=== PATIENT | female | born 1950 | race Caucasian/White ===

== ENCOUNTER 2021-10-16 20:32 | Inpatient (IN) | payer OTHER, MEDICARE ==
[2021-10-16 22:21] LABS: Absolute Lymphocytes (CBC) 1.1 K/uL (0.7-4.9); Basophils % 0.1 % (0-1.3); Hematocrit 39.8 % (36.0-45.0); Lymphocytes % 5.4 % (15.3-44.8); MPV 7.6 fL (7.6-11.3); RBC Red Blood Cell Count 4.34 M/uL (3.86-4.86)
[2021-10-16] MEDS ORDERED: ONDANSETRON 4 MG/2 ML VIAL ONE (22:28)
[2021-10-16] MEDS ORDERED: ALBUTEROL 2.5 MG/3 ML NEB SOL ONE (22:29)
[2021-10-16] MEDS ORDERED: FAMOTIDINE 20 MG/2 ML VIAL IV ONE (22:29)
[2021-10-16] MEDS ORDERED: IPRATROPIUM BROM 0.5MG/2.5ML ONE (22:29)
[2021-10-16] MEDS ORDERED: NA CHLORIDE 0.9% 2,000 ML ONE (22:29)
[2021-10-16 22:33] LABS: Protime INR 1.15
[2021-10-16 22:44] LABS: ALT/SGPT 37 U/L (12-78); AST/SGOT 26 U/L (15-37); Albumin 3.6 g/dL (3.4-5.0); Alkaline Phosphatase 101 U/L (45-117); Amylase 56 U/L (25-115); BUN Blood Urea Nitrogen 33 mg/dL (7-18); Bicarbonate 21 mmol/L (21-32); Bilirubin Direct 0.1 mg/dL (0-0.2); Bilirubin Total 0.4 mg/dL (0.2-1.0); CKMB Creatine Kinase MB 1.8 ng/mL (1.0-3.6); Creatine Phosphokinase 148 U/L (26-192); Glucose Level 130 mg/dL (74-106); Lipase 223 U/L (73-393); Potassium 3.8 mmol/L (3.5-5.1); Protein, Total 8.2 g/dL (6.4-8.2); Sodium Level 141 mmol/L (136-145); Troponin (Emerg Dept Use Only) < 0.02 ng/mL (0.0-0.045)
[2021-10-17] MEDS ORDERED: CEFTRIAXONE 1000 MG/VIAL ONE (00:18)
[2021-10-17] MEDS ORDERED: NA CHLORIDE 0.9% 0 ML ONE (00:19)
[2021-10-17] MEDS ORDERED: AZITHROMYCIN 500 MG INJ IVPB ONE (00:19)
--- NOTE | 2021-10-17 00:47 | EDPHYS ---
Physician Documentation [facility] Name: Chele Galvez Age: 71 yrs Sex: Female : 1950 Arrival Date: 10/16/2021 Time: 20:43 Bed 16 Private MD: ED Physician Fredy Delgadillo HPI: 10/16 22:06 This 71 yrs old Female presents to ER via Ambulatory with complaints of PNUEMONIA. mh7 22:06 The patient or guardian reports cough, that is intermittent, described as moderate, mh7 difficulty breathing, flu symptoms, low-grade fever, myalgias, Chills, nausea, vomiting. 22:06 Onset: The symptoms/episode began/occurred 4 day(s) ago, and became worse today. mh7 Severity of symptoms: At their worst the symptoms were moderate, earlier today, in the emergency department the symptoms are unchanged. Modifying factors: The symptoms are alleviated by nothing, the symptoms are aggravated by nothing. Associated signs and symptoms: Pertinent positives: fever, nausea, vomiting, Pertinent negatives: chest pain, diarrhea, ear ache, rhinorrhea, sore throat. The patient has been recently seen by a physician: Outside facility. Patient states that she started having productive cough, shortness of breath, fever, chills 4 days ago. She was seen at a freestanding ED yesterday and was diagnosed with pneumonia and started on Augmentin, azithromycin, and prednisone. She states that she started having nausea and vomiting today and is unable to keep medication down.. Historical: - Allergies: 21:49 No Known Allergies; bb - Immunization history:: Adult Immunizations up to date, Client reports receiving the 2nd dose of the Covid vaccine, pfizer 3 vaccines. - Social history:: Smoking status: Patient denies any tobacco usage or history of. ROS: 22:06 Eyes: Negative for injury, pain, redness, and discharge, ENT: Negative for injury, mh7 pain, and discharge, Neck: Negative for injury, pain, and swelling, Cardiovascular: Negative for chest pain, palpitations, and edema. 22:06 Back: Negative for injury and pain, : Negative for injury, bleeding, discharge, and swelling, MS/Extremity: Negative for injury and deformity, Skin: Negative for injury, rash, and discoloration, Neuro: Negative for headache, weakness, numbness, tingling, and seizure, Psych: Negative for depression, anxiety, suicide ideation, homicidal ideation, and hallucinations, Allergy/Immunology: Negative for hives, rash, and allergies, Endocrine: Negative for neck swelling, polydipsia, polyuria, polyphagia, and marked weight changes, Hematologic/Lymphatic: Negative for swollen nodes, abnormal bleeding, and unusual bruising. 22:06 Abdomen/GI: Negative for abdominal pain, diarrhea, constipation, abdominal cramps, abdominal distension, anorexia, dysphagia, hematemesis, black/tarry stool, rectal pain, rectal bleeding, bowel incontinence, flatulence. Exam: 22:06 Head/Face: Normocephalic, atraumatic. Eyes: Pupils equal round and reactive to light, mh7 extra-ocular motions intact. Lids and lashes normal. Conjunctiva and sclera are non-icteric and not injected. Cornea within normal limits. Periorbital areas with no swelling, redness, or edema. Neck: Trachea midline, no thyromegaly or masses palpated, and no cervical lymphadenopathy. Supple, full range of motion without nuchal rigidity, or vertebral point tenderness. No Meningismus. Chest/axilla: Normal chest wall appearance and motion. Nontender with no deformity. No lesions are appreciated. Cardiovascular: Regular rate and rhythm with a normal S1 and S2. No gallops, murmurs, or rubs. Normal PMI, no JVD. No pulse deficits. 22:06 Abdomen/GI: Soft, non-tender, with normal bowel sounds. No distension or tympany. No guarding or rebound. No evidence of tenderness throughout. Back: No spinal tenderness. No costovertebral tenderness. Full range of motion. Skin: Warm, dry with normal turgor. Normal color with no rashes, no lesions, and no evidence of cellulitis. MS/ Extremity: Pulses equal, no cyanosis. Neurovascular intact. Full, normal range of motion. Neuro: Awake and alert, GCS 15, oriented to person, place, time, and situation. Cranial nerves II-XII grossly intact. Motor strength 5/5 in all extremities. Sensory grossly intact. Cerebellar exam normal. Normal gait. Psych: Awake, alert, with orientation to person, place and time. Behavior, mood, and affect are within normal limits. 22:06 Constitutional: The patient appears in no acute distress, alert, awake, uncomfortable. 22:06 Respiratory: the patient does not display signs of respiratory distress, Respirations: prolonged exhalation, that is mild, Breath sounds: rhonchi, that are moderate, are scattered, Respiratory rate: 20 Vital Signs: 21:45 BP 138 / 79; Pulse 93; Resp 20 S; Temp 98(O); Pulse Ox 99% on R/A; Weight 56.25 kg (R); bb Height 5 ft. 9 in. (175.26 cm); Pain 08/09; 10/17 03:49 BP 115 / 59; Pulse 85; Resp 20; Temp 98.2(O); Pulse Ox 99% on R/A; lp1 10/16 21:45 Body Mass Index 18.31 (56.25 kg, 175.26 cm) bb MDM: 00:45 Differential Diagnosis: Bronchitis Influenza Upper Respiratory Infection Sinusitis [facility] Allergic Rhinitis Asthma Exacerbation Viral Syndrome Pneumonia. Data reviewed: vital signs, nurses notes, lab test result(s), cardiac enzymes, CBC, electrolytes, EKG, radiologic studies, CT scan, plain films. Data interpreted: Pulse oximetry: on room air is 99 %. Interpretation: normal. Counseling: I had a detailed discussion with the patient and/or guardian regarding: the historical points, exam findings, and any diagnostic results supporting the discharge/admit diagnosis, the presence of at least one elevated blood pressure reading (>120/80) during this emergency department visit, lab results, radiology results, the need for further work-up and treatment in the hospital. Response to treatment: the patient's symptoms have mildly improved after treatment. 00:47 Patient medically screened. [facility] 10/16 22:03 Order name: Amylase, Serum [facility] 10/16 22:03 Order name: Basic Metabolic Panel [facility] 10/16 22:03 Order name: Blood Culture Adult (2) [facility] 10/16 22:03 Order name: CBC with Diff [facility] 10/16 22:03 Order name: CPK; Complete Time: 23:03 [facility] 10/16 22:03 Order name: Ckmb; Complete Time: 23:03 [facility] 10/16 22:03 Order name: LFT's; Complete Time: 23:03 [facility] 10/16 22:03 Order name: Lactate; Complete Time: 23:03 [facility] 10/16 22:03 Order name: Lipase; Complete Time: 23:03 [facility] 10/16 22:03 Order name: Procalcitonin; Complete Time: 23:03 [facility] 10/16 22:03 Order name: Protime (+inr); Complete Time: 23:03 [facility] 10/16 22:03 Order name: Ptt, Activated; Complete Time: 23:03 [facility] 10/16 22:03 Order name: Sputum Culture [facility] 10/16 22:03 Order name: Troponin (emerg Dept Use Only); Complete Time: 23:03 [facility] 10/16 22:03 Order name: Urine Culture [facility] 10/16 22:03 Order name: Urine Microscopic Only [facility] 10/16 22:03 Order name: Chest Single View XRAY [facility] 10/16 22:04 Order name: Amylase; Complete Time: 23:03 [facility] 10/16 22:04 Order name: Basic Metabolic Panel; Complete Time: 23:03 [facility] 10/16 22:04 Order name: Blood Culture [facility] 10/16 22:04 Order name: CBC with Automated Diff; Complete Time: 23:03 [facility] 10/16 23:07 Order name: CT Chest For PE Angio [facility] 10/17 01:10 Order name: COVID-19 SARS RT PCR (Document "Date of Onset" if Symptomatic) [facility] 10/17 01:10 Order name: SARS-COV-2 RT PCR [facility] 10/17 01:24 Order name: Urine Dipstick-Ancillary [facility] 10/16 22:03 Order name: Accucheck; Complete Time: 22:12 [facility] 10/16 22:03 Order name: Cardiac monitoring; Complete Time: 22:12 [facility] 10/16 22:03 Order name: EKG - Nurse/Tech; Complete Time: 22:50 [facility] 10/16 22:03 Order name: IV Saline Lock - Large Bore; Complete Time: 22:12 [facility] 10/16 22:03 Order name: Labs collected and sent; Complete Time: 22:12 [facility] 10/16 22:03 Order name: O2 Per Protocol; Complete Time: 22:12 [facility] 10/16 22:03 Order name: O2 Sat Monitoring; Complete Time: 22:12 [facility] 10/16 22:03 Order name: Urine Dipstick-Ancillary (obtain specimen); Complete Time: 01:26 7 Administered Medications: 10/16 22:35 Drug: Pepcid (famotidine) 20 mg Route: IVP; Site: left antecubital; [facility] 22:36 Drug: NS 0.9% (30 ml/kg) 30 ml/kg Route: IV; Rate: bolus; Site: left antecubital; [facility] 22:36 Drug: Zofran (Ondansetron) 4 mg Route: IVP; Site: left antecubital; [facility] 22:36 Drug: Albuterol 2.5 mg Route: Inhalation; [facility] 22:36 Drug: AtroVENT (ipratropium) Aerosol 0.5 mg Route: Inhalation; [facility] 10/17 00:29 Drug: Rocephin (cefTRIAXone) 1 grams Route: IV; Rate: per protocol; Site: left [facility]; 00:29 Drug: AZITHromycin 500 mg Route: IVPB; Infused Over: 1 hrs; Site: left antecubital; [facility] 03:15 Follow up: IV Status: Completed infusion; IV Intake: 250ml lp1 00:31 Drug: NS 0.9% (30 ml/kg) 30 ml/kg Route: IV; Rate: bolus; Site: left antecubital; [facility] 03:51 Follow up: IV Status: Completed infusion; IV Intake: 1687ml lp1 Disposition Summary: 10/17/21 00:47 Hospitalization Ordered Hospitalization Status: Inpatient Admission [facility] Provider: Brett Menjivar Location: Telemetry/MedSurg (Inpatient) [facility] Condition: Stable [facility] Problem: new [facility] Symptoms: have improved [facility] Bed/Room Type: Standard [facility] Room Assignment: [facility](10/17/21 03:52) Diagnosis - Multilobar Pneumonia [facility] - Dyspnea [facility] - Nausea with vomiting, unspecified [facility] Forms: - Medication Reconciliation Form [facility] - SBAR form [facility] Signatures: Dispatcher [employer] EDMS Angi Sarkar RN RN Sri Brandon RN RN bb Holmes, Maurice, MD MD [facility] Fabiola Levin RN RN [facility] Toya Carrillo RN 1 Corrections: (The following items were deleted from the chart) 03:52 00:47 [facility]
--- NOTE | 2021-10-17 00:47 | ER ---
Nurse's Notes [facility] Name: Chele Galvez Age: 71 yrs Sex: Female : 1950 Arrival Date: 10/16/2021 Time: 20:43 Bed 16 Private MD: Diagnosis: Multilobar Pneumonia;Dyspnea;Nausea with vomiting, unspecified Presentation: 10/16 21:45 Chief complaint: Patient states: she was seen at [place] yesterday and diagnosed with bb pneumonia she has COPD, asthma as well and has not been able to keep any of her medications down and she has severe diarrhea as well as fever. Coronavirus screen: cough unrelated to allergies, diarrhea, vomiting. Ebola Screen: No symptoms or risks identified at this time. Initial Sepsis Screen: Does the patient meet any 2 criteria? No. Patient's initial sepsis screen is negative. Does the patient have a suspected source of infection? Yes: Productive cough/pneumonia. Risk Assessment: Do you want to hurt yourself or someone else? Patient reports no desire to harm self or others. Onset of symptoms was October 12, 2021. 21:45 Method Of Arrival: Ambulatory bb 21:45 Acuity: ABHISHEK 2 bb Historical: - Allergies: 21:49 No Known Allergies; bb - Immunization history:: Adult Immunizations up to date, Client reports receiving the 2nd dose of the Covid vaccine, pfizer 3 vaccines. - Social history:: Smoking status: Patient denies any tobacco usage or history of. Screenin:51 Abuse screen: Denies threats or abuse. Denies injuries from another. Nutritional 5 screening: No deficits noted. Tuberculosis screening: No symptoms or risk factors identified. 21:51 Fall Risk None identified. [facility] Assessment: 10/17 01:25 Reassessment: AMINATA Murphy at bedside to discuss plan of care with patient and lp1 significant other. 03:49 General: Appears ill, Behavior is appropriate for age. Pain: Denies pain. Neuro: Level lp1 of Consciousness is awake, alert, obeys commands, Gait is steady. Cardiovascular: Patient's skin is warm and dry. Respiratory: Respiratory effort is even, unlabored. Derm: Skin is thin, Skin is dry, Skin is pale. Musculoskeletal: No deficits noted. Vital Signs: 10/16 21:45 BP 138 / 79; Pulse 93; Resp 20 S; Temp 98(O); Pulse Ox 99% on R/A; Weight 56.25 kg (R); bb Height 5 ft. 9 in. (175.26 cm); Pain 10; 10/17 03:49 BP 115 / 59; Pulse 85; Resp 20; Temp 98.2(O); Pulse Ox 99% on R/A; lp1 10/16 21:45 Body Mass Index 18.31 (56.25 kg, 175.26 cm) bb ED Course: 10/16 20:43 Patient arrived in ED. kc5 21:49 Triage completed. bb 21:49 Arm band placed on Patient placed in an exam room, on a stretcher, on cardiac cath lab technologist, bb on pulse oximetry. Family accompanied patient. 21:50 Fabiola Levin, RN is Primary Nurse. 5 21:52 Patient has correct armband on for positive identification. Bed in low position. Call [facility] light in reach. Side rails up X 1. 21:55 Fredy Delgadillo MD is Attending Physician. 7 22:25 Chest Single View XRAY In Process Unspecified. EDMS 23:46 CT Chest For PE Angio In Process Unspecified. EDMS 10/17 00:46 Brett Menjivar is Hospitalizing Provider. 7 01:32 Primary Nurse role handed off by Fabiola Levin, RN cs9 02:58 COVID-19 SARS RT PCR (Document "Date of Onset" if Symptomatic) Sent. cs9 03:14 Toya Carrillo RN is Primary Nurse. lp1 03:49 No provider procedures requiring assistance completed. Patient admitted, IV remains in lp1 place. Administered Medications: 10/16 22:35 Drug: Pepcid (famotidine) 20 mg Route: IVP; Site: left antecubital; 5 22:36 Drug: NS 0.9% (30 ml/kg) 30 ml/kg Route: IV; Rate: bolus; Site: left antecubital; 5 22:36 Drug: Zofran (Ondansetron) 4 mg Route: IVP; Site: left antecubital; 5 22:36 Drug: Albuterol 2.5 mg Route: Inhalation; 5 22:36 Drug: AtroVENT (ipratropium) Aerosol 0.5 mg Route: Inhalation; [facility] 10/17 00:29 Drug: Rocephin (cefTRIAXone) 1 grams Route: IV; Rate: per protocol; Site: left [facility] antecubital; 00:29 Drug: AZITHromycin 500 mg Route: IVPB; Infused Over: 1 hrs; Site: left antecubital; [facility] 03:15 Follow up: IV Status: Completed infusion; IV Intake: 250ml lp1 00:31 Drug: NS 0.9% (30 ml/kg) 30 ml/kg Route: IV; Rate: bolus; Site: left antecubital; [facility] 03:51 Follow up: IV Status: Completed infusion; IV Intake: 1687ml lp1 Intake: 03:15 IV: 250ml; Total: 250ml. lp1 03:51 IV: 1687ml; Total: 1937ml. lp1 Outcome: 00:47 Decision to Hospitalize by Provider. [facility] 03:49 Condition: stable lp1 03:49 Instructed on the need for admit. 04:18 Admitted to Med/surg room 224, with chart, Report called to VIRGILIO Soto lp1 04:18 Patient left the ED. lp1 Signatures: Dispatcher [employer] EDMS Sri Brandon RN RN bb Toya Carrillo RN RN lp1 Fredy Delgadillo MD MD [facility] Shala Bellamy [facility] Fabiola Levin RN RN 5 L[place] Gu[place] 5
[2021-10-17 01:24] LABS: Urine Blood Trace-intact (Negative); Urine Glucose Negative (Negative); Urine Protein Negative (Negative); Urine Specific Gravity 1.015 (1.005-1.030); Urine pH 5.5 (5.0-7.0)
[2021-10-17 01:46] LABS: Urine Bacteria 20-50 /HPF (<20); Urine RBC <5 /HPF (NONE SEEN)
[2021-10-17 01:47] LABS: Urine Coarse Granular Casts FEW /LPF (NONE SEEN); Urine Mucus 1+ /HPF (NONE SEEN)
--- NOTE | 2021-10-17 03:40 | P.HP ---
Certification for Inpatient Patient admitted to: Inpatient With expected LOS: >2 Midnights Patient will require the following post-hospital care: None Practitioner: I am a practitioner with admitting privileges, knowledge of patient current condition, hospital course, and medical plan of care. Services: Services provided to patient in accordance with Admission requirements found in Title 42 Section 412.3 of the Code of Federal Regulations Patient History Date of Service: 10/17/21 Primary Care Provider: Pankaj Reason for admission: pneumonia, copd exacerbation History of Present Illness: Ms. Galvez is a 71 yo F with COPD, asthma, HTN, Raynaud's disease who presents with fever and SOB. Starting on Tuesday, she had a fever to 103.7 and chills. She also reports cough, wheezing, pleuritic pain, anorexia. She has home O2 to use as needed that she has been having to use more often. She also reports less relief of symptoms with her breathing treatments. Yesterday she went to [facility] and received PO antibiotics and steroids. She continued to feel worse, so her thermodynamics engineer told her to go to the ED for IV fluids and IV antibiotics. Prior to 2 years ago, she was admitted to the hospital at least twice a year with pneumonia. She has required multiple bronchial washes and intubations in the past. She started the Nucala injections 2 years ago and has not had to be hospitalized since then. WBC 19.8 BUN 33 GFR 65 procalcitonin 7.05. - Past Medical/Surgical History Has patient received pneumonia vaccine in the past: No -: COPD -: asthma -: Raynaud's -: HTN -: arthritis -: hysterectomy - Social History Smoking Status: Never smoker Alcohol use: No CD- Drugs: No Caffeine use: No Place of Residence: Home Review of Systems General: Fever, Chills, Malaise Eyes: Unremarkable ENT: Unremarkable Respiratory: Cough, Shortness of Breath, Pleuritic Pain, Wheezing Cardiovascular: Unremarkable Gastrointestinal: Nausea, Vomiting, Abdominal Pain, Diarrhea Genitourinary: Unremarkable Musculoskeletal: Unremarkable Integumentary: Unremarkable Neurological: Unremarkable Lymphatics: Unremarkable Physical Examination - Physical Exam General: Alert, In no apparent distress HEENT: Atraumatic, PERRLA, Mucous membr. moist/pink, EOMI, Sclerae nonicteric Neck: Supple, 2+ carotid pulse no bruit, No LAD, Without JVD or thyroid abnormality Respiratory: Diminished, Rhonchi/gurgles Cardiovascular: Regular rate/rhythm, Normal S1 S2 Gastrointestinal: Normal bowel sounds, No tenderness Musculoskeletal: No tenderness Integumentary: No rashes Neurological: Normal speech, Normal strength at 5/5 x4 extr, Normal tone, Normal affect Lymphatics: No axilla or inguinal lymphadenopathy - Studies Laboratory Data (last 24 hrs) 10/16/21 22:09: PT 13.2 H, INR 1.15, APTT 38.4 H 10/16/21 22:09: WBC 19.80 H, Hgb 12.9, Hct 39.8, Plt Count 242 10/16/21 22:09: Sodium 141, Potassium 3.8, BUN 33 H, Creatinine 0.86, Glucose 130 H, Total Bilirubin 0.4, AST 26, ALT 37, Alkaline Phosphatase 101, Amylase 56, Lipase 223 Assessment and Plan - Problems (Diagnosis) (1) Pneumonia Current Visit: Yes Status: Acute Qualifiers: Pneumonia type: due to unspecified organism Laterality: unspecified l aterality Lung location: unspecified part of lung Qualified Code(s): J18.9 - Pneumonia, unspecified organism (2) COPD (chronic obstructive pulmonary disease) Current Visit: Yes Status: Chronic Qualifiers: COPD type: COPD with acute exacerbation Qualified Code(s): J44.1 - Chronic obstructive pulmonary disease with (acute) exacerbation (3) Asthma Current Visit: Yes Status: Chronic Qualifiers: Asthma severity: unspecified severity Asthma persistence: unspecified Asthma complication type: unspecified Qualified Code(s): J45.909 - Unspecified asthma, uncomplicated (4) HTN (hypertension) Current Visit: Yes Status: Chronic Qualifiers: Hypertension type: primary hypertension Qualified Code(s): I10 - Essential (primary) hypertension - Plan pulm consulted continue IV fluids, IV ceftriaxone and azithromycin continue breathing treatments continue prednisone antiemetics as needed reconcile and continue home medications DVT ppx Discharge Plan: Home Plan to discharge in: 72 Hours - Advance Directives Does patient have a Living Will: Yes Does patient have a Durable POA for Healthcare: Yes - Code Status/Comfort Care Code Status Assessed: Yes (full code ) Critical Care: No Time Spent Managing Pts Care (In Minutes): 70
[2021-10-17] MEDS ORDERED: ONDANSETRON 4 MG/2 ML VIAL IV PRN (05:02)
[2021-10-17] MEDS ORDERED: IPRATROPIUM BROM 0.5MG/2.5ML NEB PRN (05:02)
[2021-10-17] MEDS ORDERED: ALBUTEROL 2.5 MG/3 ML NEB SOL NEB PRN (05:02)
[2021-10-17] MEDS: NA CHLORIDE 0.9% 1,000 ML IV SCH ×3 (05:37→21:06)
[2021-10-17 06:44] LABS: Absolute Lymphocytes (CBC) 1.2 K/uL (0.7-4.9); Basophils % 0.1 % (0-1.3); Hematocrit 32.5 % (36.0-45.0); Lymphocytes % 7.3 % (15.3-44.8); MPV 7.6 fL (7.6-11.3); RBC Red Blood Cell Count 3.49 M/uL (3.86-4.86)
[2021-10-17 06:56] LABS: ALT/SGPT 34 U/L (12-78); AST/SGOT 23 U/L (15-37); Albumin 2.8 g/dL (3.4-5.0); Alkaline Phosphatase 79 U/L (45-117); BUN Blood Urea Nitrogen 26 mg/dL (7-18); Bicarbonate 21 mmol/L (21-32); Bilirubin Total 0.3 mg/dL (0.2-1.0); Glucose Level 98 mg/dL (74-106); Potassium 3.3 mmol/L (3.5-5.1); Protein, Total 6.4 g/dL (6.4-8.2); Sodium Level 144 mmol/L (136-145)
[2021-10-17] MEDS ORDERED: POTASSIUM CL SA 10 MEQ TAB PO ONE (09:00)
[2021-10-17 09:05] LABS: Blood Morphology Comment NOT SEEN (NOT SEEN); Platelet Estimate ADEQ; White Blood Cell Scan OK (OK)
--- NOTE | 2021-10-17 10:34 | RAD REPORT ---
EXAM DESCRIPTION: RAD - Chest Single View - 10/16/2021 10:26 pm CLINICAL HISTORY: Cough;SOB Chest pain. COMPARISON: No comparisons FINDINGS: Portable technique limits examination quality. Prominent emphysematous changes are noted throughout the lungs. Increased linear opacities in both kieran ng bases could represent superimposed infection. The heart is normal in size. No displaced fractures.
[2021-10-17] MEDS: predniSONE 10 MG TAB PO SCH (11:09)
[2021-10-17] MEDS: ENOXAPARIN 40 MG/0.4 ML SQ SCH (11:10)
[2021-10-17] MEDS: ACETAMINOPHEN 500 MG TAB PO PRN (11:19)
--- NOTE | 2021-10-17 12:23 | P.PN ---
Date of Service: 10/17/21 Patient seen and examined. She is reporting diarrhea. She denies abdominal pain. She has intermittent cough productive of whitish sputum. Diagnosis: Pneumonia COPD exacerbation History of asthma Possible bronchiectasis. Plan: Change antibiotics to IV Zosyn and Levaquin for some anaerobic coverage. Check stool for C. difficile. Incentive spirometry. Bronchodilators. Mucinex.
[2021-10-17] MEDS: Levofloxacin 750mg IV 750 MG/150 ML BAG IV SCH (13:03)
[2021-10-17] MEDS: GUAIFENESIN 600 MG SA TAB PO SCH ×2 (13:03→21:03)
[2021-10-17] MEDS: PIPER TAZO 3.375 GM in NA CHLORIDE 0.9% 100 ML IV SCH (16:21)
[2021-10-17] MEDS: FEXOFENADINE 180 MG TAB PO SCH (16:23)
[2021-10-17] MEDS: AZELASTINE NAS SCH (21:00)
[2021-10-17] MEDS: FORMOTEROL FUM IH SCH (21:00)
[2021-10-17] MEDS: FLUTICASONE NAS SCH (21:00)
[2021-10-17] MEDS: FLUTICASONE 50MCG NASAL SPRAY NAS SCH (21:00)
[2021-10-17] MEDS: GLUCOSAMINE CHONDROITIN PO SCH (21:00)
[2021-10-17] MEDS: NIACINAMIDE 500 MG TAB PO SCH (21:00)
[2021-10-17] MEDS: GABAPENTIN 400 MG CAP PO SCH (21:03)
[2021-10-17] MEDS: VITAMIN D 1000 UNIT TAB PO SCH (21:03)
[2021-10-17] MEDS: MONTELUKAST 10 MG TAB PO SCH (21:03)
[2021-10-17] MEDS: CALCIUM CARBONATE CHEW 500MG TAB PO SCH (21:03)
[2021-10-18] MEDS ORDERED: CEFTRIAXONE 1,000 MG in NA CHLORIDE 0.9% 50 ML IVPB SCH ×2
[2021-10-18] MEDS ORDERED: AZITHROMYCIN IV 500 MG in NA CHLORIDE 0.9% 250 ML IVPB SCH ×2
[2021-10-18] MEDS: PIPER TAZO 3.375 GM in NA CHLORIDE 0.9% 100 ML IV SCH ×3 (01:19→16:51)
[2021-10-18] MEDS: ACETAMINOPHEN 500 MG TAB PO PRN ×3 (03:52→20:42)
[2021-10-18 05:56] LABS: Absolute Lymphocytes (CBC) 1.6 K/uL (0.7-4.9); Basophils % 0.2 % (0-1.3); Hematocrit 32.6 % (36.0-45.0); Lymphocytes % 12.7 % (15.3-44.8); MPV 6.9 fL (7.6-11.3); RBC Red Blood Cell Count 3.58 M/uL (3.86-4.86)
[2021-10-18 06:29] LABS: ALT/SGPT 57 U/L (12-78); AST/SGOT 36 U/L (15-37); Albumin 2.9 g/dL (3.4-5.0); Alkaline Phosphatase 105 U/L (45-117); BUN Blood Urea Nitrogen 13 mg/dL (7-18); Bicarbonate 21 mmol/L (21-32); Bilirubin Total 0.4 mg/dL (0.2-1.0); Glucose Level 94 mg/dL (74-106); HDL Cholesterol 39 mg/dL (40-60); LDL Cholesterol, Calculated 52 (<130); Magnesium 2.1 mg/dL (1.8-2.4); Phosphorus 1.5 mg/dL (2.5-4.9); Potassium 3.3 mmol/L (3.5-5.1); Protein, Total 6.7 g/dL (6.4-8.2); Sodium Level 141 mmol/L (136-145); Thyroid Stimulating Hormone 0.731 uIU/mL (0.360-3.740)
[2021-10-18] MEDS: NA CHLORIDE 0.9% 1,000 ML IV SCH ×2 (07:20→16:51)
[2021-10-18] MEDS: FLUTICASONE NAS SCH ×2 (08:10→20:37)
[2021-10-18] MEDS: AZELASTINE NAS SCH ×2 (08:10→20:37)
[2021-10-18] MEDS: FORMOTEROL FUM IH SCH ×2 (08:10→20:36)
[2021-10-18] MEDS: GLUCOSAMINE CHONDROITIN PO SCH ×2 (08:10→20:36)
[2021-10-18] MEDS: FEXOFENADINE 180 MG TAB PO SCH (08:10)
[2021-10-18] MEDS: FLUTICASONE 50MCG NASAL SPRAY NAS SCH ×2 (08:10→20:34)
[2021-10-18] MEDS: NIACINAMIDE 500 MG TAB PO SCH ×2 (08:11→20:36)
[2021-10-18] MEDS: POTASS/SODIUM PHOSPHATE 1 PKT POWD.PACK PO SCH ×3 (08:15→10:14)
[2021-10-18] MEDS: predniSONE 10 MG TAB PO SCH (08:35)
[2021-10-18] MEDS: ENOXAPARIN 40 MG/0.4 ML SQ SCH (08:35)
[2021-10-18] MEDS: LOSARTAN POTASSIUM 50 MG TABLET PO SCH (08:35)
[2021-10-18] MEDS: ASCORBIC ACID 500 MG TABLET PO SCH (08:36)
[2021-10-18] MEDS: GABAPENTIN 400 MG CAP PO SCH ×3 (08:36→20:35)
[2021-10-18] MEDS: ZINC SULFATE 220 MG CAP PO SCH (08:36)
[2021-10-18] MEDS: GUAIFENESIN 600 MG SA TAB PO SCH ×2 (08:36→20:35)
[2021-10-18] MEDS: AMLODIPINE 5 MG TAB PO SCH (08:37)
[2021-10-18] MEDS ORDERED: POTASSIUM CL SA 10 MEQ TAB PO ONE (09:00)
--- NOTE | 2021-10-18 10:36 | P.DS ---
Admission Date: 10/17/21 Discharge Date: 10/19/21 Primary Care Provider: Pankaj Disposition: ROUTINE DISCHARGE Discharge Condition: FAIR Reason for Admission: pneumonia, copd exacerbation - Problems (1) Cellulitis of right leg Current Visit: Yes Status: Deleted (2) Status post below knee amputation of right lower extremity Current Visit: Yes Status: Deleted (3) COPD (chronic obstructive pulmonary disease) Current Visit: Yes Status: Deleted Qualifiers: COPD type: COPD with acute exacerbation Qualified Code(s): J44.1 - Chronic obstructive pulmonary disease with (acute) exacerbation (4) HTN (hypertension) Current Visit: Yes Status: Deleted Qualifiers: Hypertension type: primary hypertension Qualified Code(s): I10 - Essential (primary) hypertension Brief History of Present Illness: Ms. Galvez is a 71 yo F with COPD, asthma, HTN, Raynaud's disease who presents with fever and SOB. Starting on Tuesday, she had a fever to 103.7 and chills. She also reports cough, wheezing, pleuritic pain, anorexia. She has home O2 to use as needed that she has been having to use more often. She also reports less relief of symptoms with her breathing treatments. Yesterday she went to [facility] and received PO antibiotics and steroids. She continued to feel worse, so her rn or lpn told her to go to the ED for IV fluids and IV antibiotics. Prior to 2 years ago, she was admitted to the hospital at least twice a year with pneumonia. She has required multiple bronchial washes and intubations in the past. She started the Nucala injections 2 years ago and has not had to be hospitalized since then. WBC 19.8 BUN 33 GFR 65 procalcitonin 7.05. Vital Signs/Physical Exam: Temp Pulse Resp BP Pulse Ox 98.2 F 91 H 18 122/58 L 93 10/18/21 08:00 10/18/21 08:00 10/18/21 08:00 10/18/21 08:00 10/18/21 08:00 General: Alert, In no apparent distress, Oriented x3 HEENT: Mucous membr. moist/pink Neck: JVD not distended Respiratory: Clear to auscultation bilaterally, Normal air movement Cardiovascular: No edema, Regular rate/rhythm, Normal S1 S2 Gastrointestinal: Normal bowel sounds, Soft and benign, Non-distended, No tenderness Musculoskeletal: Other (Right BKA) Integumentary: Other (Wounds at the end of the right BKA amputation stump. Wound looks clean and dry.) Neurological: Normal speech, Normal strength at 5/5 x4 extr Laboratory Data at Discharge: WBC 12.70 K/uL (4.3-10.9) H D 10/18/21 05:47 Hgb 10.9 g/dL (12.0-15.0) L 10/18/21 05:47 Hct 32.6 % (36.0-45.0) L 10/18/21 05:47 Plt Count 220 K/uL (152-406) 10/18/21 05:47 PT 13.2 SECONDS (9.5-12.5) H 10/16/21 22:09 INR 1.15 10/16/21 22:09 APTT 38.4 SECONDS (24.3-36.9) H 10/16/21 22:09 Sodium 141 mmol/L (136-145) 10/18/21 05:47 Potassium 3.3 mmol/L (3.5-5.1) L 10/18/21 05:47 BUN 13 mg/dL (7-18) 10/18/21 05:47 Creatinine 0.64 mg/dL (0.55-1.3) 10/18/21 05:47 Glucose 94 mg/dL (74-106) 10/18/21 05:47 Phosphorus 1.5 mg/dL (2.5-4.9) L 10/18/21 05:47 Magnesium 2.1 mg/dL (1.8-2.4) 10/18/21 05:47 Total Bilirubin 0.4 mg/dL (0.2-1.0) 10/18/21 05:47 AST 36 U/L (15-37) 10/18/21 05:47 ALT 57 U/L (12-78) 10/18/21 05:47 Alkaline Phosphatase 105 U/L (45-117) 10/18/21 05:47 Triglycerides 133 mg/dL (<150) 10/18/21 05:47 Cholesterol 118 mg/dL (<200) 10/18/21 05:47 HDL Cholesterol 39 mg/dL (40-60) L 10/18/21 05:47 Cholesterol/HDL Ratio 3.03 10/18/21 05:47 Amylase 56 U/L (25-115) 10/16/21 22:09 Lipase 223 U/L (73-393) 10/16/21 22:09 Home Medications: Acetaminophen [8Hr Arthritis Pain Relief] 2 tab PO BID 10/17/21 Amlodipine [Norvasc*] 5 mg PO DAILY 10/17/21 Ascorbic Acid/Ascorbate Sodium [Vitamin C 500 mg Tablet Chew] 500 mg PO DAILY 10/17/21 Azelastine/Fluticasone [Azelastin-Flutic 137-50Mcg Spr] 2 sprays IN BID 10/17/21 Calcium Carbonate [Calcium] 600 mg PO BEDTIME 10/17/21 Cholecalciferol (Vitamin D3) [Vitamin D3] 1,000 unit PO BEDTIME 10/17/21 Fexofenadine HCl [Nelly Allergy] 180 mg PO DAILY 10/17/21 Fluticasone [Flonase 50MCG Nasal [place]*] 2 spray IN BID 10/17/21 Formoterol Fumarate 20 mcg IH BID 10/17/21 Gabapentin 800 mg PO TID 10/17/21 Glucos Sul 2Kcl/MSM/Chond/C/Mn [Glucosamine Chondroitin Cap] 1 cap PO BID 10/17/21 Guaifenesin [Mucinex] 1,200 mg PO BID 10/17/21 Ipratropium [place] 2 spray IN BID 10/17/21 Losartan Potassium 100 mg PO DAILY 10/17/21 Magnesium Oxide [Magnesium] 250 mg PO BEDTIME 10/17/21 Montelukast [Singulair*] 10 mg PO BEDTIME 10/17/21 Niacinamide 500 mg PO BID 10/17/21 Revefenacin [Yupelri] 1 inh PO DAILY 10/17/21 Zinc 50 mg PO DAILY 10/17/21 levoFLOXacin [Levaquin] 750 mg PO DAILY #7 tab 10/18/21 New Medications: levoFLOXacin [Levaquin] 750 mg PO DAILY #7 tab Diet: AHA Activity: Ad lilibeth Followup: Jesus Lira DO [Primary Care Provider] - 1-2 Weeks Time spent managing pt's care (in minutes): 34
--- NOTE | 2021-10-18 12:28 | P.PN ---
Subjective Date of Service: 10/18/21 Primary Care Provider: Pankaj Chief Complaint: pneumonia, copd exacerbation Patient states she feels better today compared to yesterday. She report intermittent nonproductive cough. No fever. Report 1 diarrhea BM this morning. She denies any abdominal pain Physical Examination - Vital Signs Temperature: 98.2 F Blood Pressure: 122/58 Pulse: 91 Respirations: 18 Pulse Ox (%): 93 - Physical Exam General: Alert, In no apparent distress, Oriented x3 HEENT: Mucous membr. moist/pink Neck: JVD not distended Respiratory: Diminished, Other (No rhonchi or rales or wheezes.) Cardiovascular: No edema, Regular rate/rhythm, Normal S1 S2, No murmurs Gastrointestinal: Normal bowel sounds, Soft and benign, Non-distended, No tenderness Musculoskeletal: No swelling, No tenderness Integumentary: No rashes Neurological: Normal speech, Normal strength at 5/5 x4 extr Assessment And Plan - Current Problems (Diagnosis) (1) Pneumonia Current Visit: Yes Status: Acute Qualifiers: Pneumonia type: due to unspecified organism Laterality: unspecified laterality Lung location: unspecified part of lung Qualified Code(s): J18.9 - Pneumonia, unspecified organism (2) Asthma Current Visit: Yes Status: Chronic Qualifiers: Asthma severity: unspecified severity Asthma persistence: unspecified Asthma complication type: unspecified Qualified Code(s): J45.909 - Unspecified asthma, uncomplicated - Plan Patient claims she has a history of bronchiectasis and been told by her teacher citizenship oral antibiotics would not be enough to treat her pneumonia. Procalcitonin is elevated. Blood cultures: No growth to date Sputum culture is pending. Continue IV antibiotics-Zosyn and Levaquin Chest physiotherapy-Mucinex and incentive spirometer. Patient complaining of diarrhea. Stool for C. difficile ordered. Follow cultures. Bronchodilators as needed. Continue steroid.
[2021-10-18] MEDS: Levofloxacin 750mg IV 750 MG/150 ML BAG IV SCH (13:58)
--- NOTE | 2021-10-18 14:00 | RAD REPORT ---
EXAM DESCRIPTION: CT Angiography Chest With Intravenous Contrast CLINICAL HISTORY: Cough;SOB TECHNIQUE: Axial computed tomographic angiography images of the chest with intravenous contrast. S agittal and coronal reformatted images were created and reviewed. This CT exam was performed using one or more of the following dose reduction techniques: automated exposure control, adjustment of t he mA and/or kV according to patient size, and/or use of iterative reconstruction technique. MIP reconstructed images were created and reviewed. COMPARISON: No relevant prior studies available. FINDINGS: Artifacts: Motion artifact degrades image quality and limits evaluation of segmental and subsegmental vessels particularly at the lung bases. Pulmonary arteries: No pulmonary arterial filling defects. Aorta: Mild atherosclerotic disease. No thoracic aortic aneurysm. Lungs: Biapical and bilateral upper lobe pleural parenchymal scar. 7 mm left upper lobe nodule (ser ies 401 image 46 and series 404 image 37). Patchy groundglass and reticular nodular bilateral lower l obe opacities, left greater than right. Generalized bronchiectasis. Left basilar mucous plugging. Pleural space: Unremarkable. No significant effusion. No pneumothorax. Heart: Small pericardial effusion. No evidence of RV dysfunction. Thyroid: Heterogeneous nodularity of the right lobe of the thyroid. 2 distinct nodules measuring 1. 5 cm. Bones/joints: Multilevel spondylosis. No acute fracture. Soft tissues: Unremarkable. Lymph nodes: Unremarkable. No enlarged lymph nodes. IMPRESSION: 1. Motion artifact degrades image quality and limits evaluation of segmental and subse gmental vessels particularly at the lung bases. No pulmonary embolic disease identified. 2. Left greater than right lower lobe infiltrates. Left basilar mucous plugging. 3. Nonspecific 7 mm left upper lobe nodule. Recommend a non-contrast Chest CT at 6-12 months; if patient is high risk for malignancy, consider an additional non-contrast Chest CT at 18-24 months. If patient is low risk for malignancy, non-contrast Chest CT at 18-24 months is optional. Note: This re commendation does not apply to patients younger than 35 years, immunocompromised patients, and patien ts with cancer. F/u in patients with significant comorbidities as clinically warranted. For lung canc er screening, adhere to Lung-RADS guidelines. Reference: Radiology. 2017 Apr; 284(1):228-243 4. Right thyroid heterogeneous nodularity. Recommend thyroid US. Note: No imaging follow-up is recommended for patients who have limited life expectancy or significant co-morbidities, unless clini joshua warranted. This recommendation does not apply to patients with symptomatic thyroid disease or i ncreased risk for thyroid cancer. Reference: J Am Iram Radiol 2015 Dec;12(2): 143-50 5. Other findings as above. Electronically signed by: Theo Valles MD 10/17/2021 12:23 AM [facility] Due to temporary technical issues with the PACS/Fluency reporting system, reports are being signed by the in house radiologists without review as a courtesy to insure prompt reporting. The interpreting radiologist is fully responsible for the content of the report.
[2021-10-18] MEDS: VITAMIN D 1000 UNIT TAB PO SCH (20:35)
[2021-10-18] MEDS: MONTELUKAST 10 MG TAB PO SCH (20:36)
[2021-10-18] MEDS: CALCIUM CARBONATE CHEW 500MG TAB PO SCH (20:37)
[2021-10-19] MEDS: PIPER TAZO 3.375 GM in NA CHLORIDE 0.9% 100 ML IV SCH ×3 (00:01→17:33)
[2021-10-19] MEDS: NA CHLORIDE 0.9% 1,000 ML IV SCH ×3 (03:20→23:34)
[2021-10-19 06:07] LABS: Absolute Lymphocytes (CBC) 1.5 K/uL (0.7-4.9); Basophils % 0.2 % (0-1.3); Hematocrit 30.6 % (36.0-45.0); Lymphocytes % 13.9 % (15.3-44.8); MPV 6.9 fL (7.6-11.3); RBC Red Blood Cell Count 3.34 M/uL (3.86-4.86)
[2021-10-19 06:28] LABS: ALT/SGPT 44 U/L (12-78); AST/SGOT 20 U/L (15-37); Albumin 2.3 g/dL (3.4-5.0); Alkaline Phosphatase 79 U/L (45-117); BUN Blood Urea Nitrogen 8 mg/dL (7-18); Bicarbonate 24 mmol/L (21-32); Bilirubin Total 0.3 mg/dL (0.2-1.0); Glucose Level 96 mg/dL (74-106); Potassium 3.2 mmol/L (3.5-5.1); Protein, Total 5.6 g/dL (6.4-8.2); Sodium Level 145 mmol/L (136-145)
--- NOTE | 2021-10-19 08:14 | EKG ---
Test Date: 2021-10-16 Test Time: 22:48:28 Fire Officer: CHETNA Link MEASUREMENT RESULTS: Intervals: Rate: 84 TX: 132 QRSD: 74 QT: 366 QTc: 432 [place]: P: 78 TX: 132 QRS: 81 T: 68 INTERPRETIVE STATEMENTS: Normal sinus rhythm Nonspecific ST abnormality Abnormal ECG No previous ECG available for comparison Electronically Signed On 10-19-21 08:12:22 [employer] by Favian Garcia
[2021-10-19] MEDS: FLUTICASONE NAS SCH ×2 (08:26→21:00)
[2021-10-19] MEDS: AZELASTINE NAS SCH ×2 (08:26→21:00)
[2021-10-19] MEDS: GLUCOSAMINE CHONDROITIN PO SCH ×2 (08:26→21:00)
[2021-10-19] MEDS: FORMOTEROL FUM IH SCH ×2 (08:26→21:00)
[2021-10-19] MEDS: NIACINAMIDE 500 MG TAB PO SCH ×2 (08:27→21:00)
[2021-10-19] MEDS: FEXOFENADINE 180 MG TAB PO SCH ×2 (08:41→08:52)
[2021-10-19] MEDS: LOSARTAN POTASSIUM 50 MG TABLET PO SCH (08:43)
[2021-10-19] MEDS: AMLODIPINE 5 MG TAB PO SCH (08:43)
[2021-10-19] MEDS: ASCORBIC ACID 500 MG TABLET PO SCH (08:44)
[2021-10-19] MEDS: ZINC SULFATE 220 MG CAP PO SCH (08:45)
[2021-10-19] MEDS: predniSONE 10 MG TAB PO SCH (08:45)
[2021-10-19] MEDS: GABAPENTIN 400 MG CAP PO SCH ×3 (08:45→21:13)
[2021-10-19] MEDS: GUAIFENESIN 600 MG SA TAB PO SCH ×2 (08:45→21:13)
[2021-10-19] MEDS: ENOXAPARIN 40 MG/0.4 ML SQ SCH (08:46)
[2021-10-19] MEDS: FLUTICASONE 50MCG NASAL SPRAY NAS SCH ×2 (08:47→21:14)
[2021-10-19] MEDS ORDERED: POTASSIUM CL SA 10 MEQ TAB PO ONE (09:00)
[2021-10-19] MEDS: ACETAMINOPHEN 500 MG TAB PO PRN ×2 (11:57→18:46)
[2021-10-19] MEDS: Levofloxacin 750mg IV 750 MG/150 ML BAG IV SCH (13:26)
[2021-10-19 14:25] LABS: C.diff Antigen/Toxin Ag neg : Tox neg (NEG : NEG)
--- NOTE | 2021-10-19 14:39 | P.PN ---
Subjective Date of Service: 10/19/21 Primary Care Provider: Pankaj Chief Complaint: pneumonia, copd exacerbation Patient complaining of pleuritic chest pain and intermittent cough No fever. She states that the diarrhea persist but frequency is better. Physical Examination - Vital Signs Temperature: 98.9 F Blood Pressure: 115/65 Pulse: 97 Respirations: 19 Pulse Ox (%): 95 - Physical Exam General: Alert, In no apparent distress, Oriented x3 HEENT: Mucous membr. moist/pink, Sclerae nonicteric Neck: JVD not distended Respiratory: Normal air movement, Crackles/rales (Left base), Other (No rhonchi or wheezes.) Cardiovascular: No edema, Regular rate/rhythm, Normal S1 S2, No murmurs Gastrointestinal: Soft and benign, Non-distended Musculoskeletal: No swelling, No tenderness Integumentary: No rashes Neurological: Normal strength at 5/5 x4 extr Assessment And Plan - Current Problems (Diagnosis) (1) Pneumonia Current Visit: Yes Status: Acute Qualifiers: Pneumonia type: due to unspecified organism Laterality: unspecified laterality Lung location: unspecified part of lung Qualified Code(s): J18.9 - Pneumonia, unspecified organism (2) Asthma Current Visit: Yes Status: Chronic Qualifiers: Asthma severity: unspecified severity Asthma persistence: unspecified Asthma complication type: unspecified Qualified Code(s): J45.909 - Unspecified asthma, uncomplicated - Plan Patient claims she has a history of bronchiectasis and been told by her electronic publishing specialist oral antibiotics would not be enough to treat her pneumonia. Procalcitonin was elevated. Blood cultures: No growth to date Sputum culture: Multiple organisms. COVID-19 negative. Continue IV antibiotics-Zosyn and Levaquin Chest physiotherapy-Mucinex and incentive spirometer. Stool for C. difficile is pending. Follow cultures. Bronchodilators as needed. Continue steroid. I try to reach her electronic publishing specialist Dr. Jason at [phone]. The credit reporting clerk who answered my call stated she has left a message for him to call me back. I am yet to hear from him.
[2021-10-19] MEDS ORDERED: TRAMADOL HCL 50 MG TAB PO PRN (17:23)
[2021-10-19] MEDS: MONTELUKAST 10 MG TAB PO SCH (21:13)
[2021-10-19] MEDS: CALCIUM CARBONATE CHEW 500MG TAB PO SCH (21:13)
[2021-10-19] MEDS: VITAMIN D 1000 UNIT TAB PO SCH (21:13)
[2021-10-20] MEDS: PIPER TAZO 3.375 GM in NA CHLORIDE 0.9% 100 ML IV SCH ×3 (01:27→17:19)
[2021-10-20 06:16] LABS: Absolute Lymphocytes (CBC) 1.6 K/uL (0.7-4.9); Basophils % 0.2 % (0-1.3); Lymphocytes % 17.5 % (15.3-44.8); MPV 6.7 fL (7.6-11.3); RBC Red Blood Cell Count 3.15 M/uL (3.86-4.86)
--- NOTE | 2021-10-20 06:17 | P.PN ---
Date of Service: 10/20/21 Subjective: No acute events overnight. Reports she continues with cough and diarrhea Reports 4 episodes of diarrhea yesterday, watery brown, no blood. No significant change in diarrhea nearly 3 days No nausea/vomiting Productive cough with white/yellowish sputum Breathing more comfortably ROS: 10 point ROS as noted above, otherwise negative Physical exam GEN: Alert, oriented, NAD HEENT: Normal conjunctiva, sclera anicteric CV: Regular rate and rhythm, no edema Pulm: Nonlabored respirations on room air, mild crackles at left base ABD: Soft, nontender, nondistended Integumentary: No rashes Neuro: Normal speech, normal affect Problem List Community-acquired pneumonia Chronic asthma Bronchiectasis with history of recurrent pneumonias Diarrhea Patient claims she has a history of bronchiectasis and been told by her control systems specialist oral antibiotics would not be enough to treat her pneumonia. Procalcitonin was elevated. Sputum & Blood cultures: Normal respiratory josse/ no growth COVID-19 negative. Continue IV antibiotics-Zosyn and Levaquin Chest physiotherapy-Mucinex and incentive spirometer has been helping c diff negative will trial Imodium. Patient states she is reluctant to do multiple doses as this is because constipation the past. start probiotic Bronchodilators as needed. Continue steroid. Dr. Jason ([phone]) was reached by Dr. Menjivar yesterday Recommended IV antibiotics for a few days given her history decrease IV fluids this morning, may be able to dc today if appetite improves and diarrhea slows down Dispo: anticipate dc home in 1-2 days Time Spent Managing Pts Care (In Minutes): 35
[2021-10-20 06:37] LABS: ALT/SGPT 39 U/L (12-78); AST/SGOT 13 U/L (15-37); Albumin 2.3 g/dL (3.4-5.0); Alkaline Phosphatase 68 U/L (45-117); BUN Blood Urea Nitrogen 7 mg/dL (7-18); Bicarbonate 25 mmol/L (21-32); Bilirubin Total 0.3 mg/dL (0.2-1.0); Glucose Level 97 mg/dL (74-106); Potassium 3.2 mmol/L (3.5-5.1); Protein, Total 5.5 g/dL (6.4-8.2); Sodium Level 144 mmol/L (136-145)
[2021-10-20 07:32] LABS: Blood Morphology Comment NOT SEEN (NOT SEEN); Platelet Estimate ADEQ
[2021-10-20] MEDS ORDERED: PIPERACIL/TAZO 3.375 GM VIAL IV ONE (08:19)
[2021-10-20] MEDS: FLUTICASONE NAS SCH ×2 (09:00→20:45)
[2021-10-20] MEDS: AZELASTINE NAS SCH ×2 (09:00→20:45)
[2021-10-20] MEDS: NIACINAMIDE 500 MG TAB PO SCH ×2 (09:00→20:46)
[2021-10-20] MEDS: FORMOTEROL FUM IH SCH ×2 (09:00→20:46)
[2021-10-20] MEDS: ASCORBIC ACID 500 MG TABLET PO SCH (09:00)
[2021-10-20] MEDS: GLUCOSAMINE CHONDROITIN PO SCH ×2 (09:00→20:46)
[2021-10-20] MEDS: FEXOFENADINE 180 MG TAB PO SCH (09:41)
[2021-10-20] MEDS: ZINC SULFATE 220 MG CAP PO SCH (09:42)
[2021-10-20] MEDS: LOSARTAN POTASSIUM 50 MG TABLET PO SCH (09:42)
[2021-10-20] MEDS: FLUTICASONE 50MCG NASAL SPRAY NAS SCH ×2 (09:43→20:40)
[2021-10-20] MEDS: predniSONE 10 MG TAB PO SCH (09:43)
[2021-10-20] MEDS: GUAIFENESIN 600 MG SA TAB PO SCH ×2 (09:45→20:36)
[2021-10-20] MEDS: ENOXAPARIN 40 MG/0.4 ML SQ SCH (09:45)
[2021-10-20] MEDS: GABAPENTIN 400 MG CAP PO SCH ×3 (09:45→20:35)
[2021-10-20] MEDS: AMLODIPINE 5 MG TAB PO SCH (09:46)
[2021-10-20] MEDS: ACETAMINOPHEN 500 MG TAB PO PRN ×3 (09:50→21:59)
[2021-10-20] MEDS ORDERED: POTASSIUM CL SA 10 MEQ TAB PO ONE (09:52)
[2021-10-20] MEDS: LACTOBACILLUS/ACIDOPHILUS TAB PO SCH ×2 (10:11→20:35)
[2021-10-20] MEDS: NA CHLORIDE 0.9% 1,000 ML IV SCH (10:11)
[2021-10-20] MEDS: LOPERAMIDE HCL 2 MG CAPSULE PO PRN (10:11)
--- NOTE | 2021-10-20 11:54 | P.CNS ---
Date of Consult: 10/20/21 Primary Care Provider: Pankaj Chief Complaint: pneumonia, copd exacerbation History of Present Illness: Patient is a 71-year-old female with a past medical history of COPD, asthma, bronchiectasis, hypertension, and Raynaud disease who presents emergency depa rtment secondary to fever and shortness of breath. Patient states her symptoms first began on Tuesday and stated that she had a fever of 100.3 and severe chills. She states that on Tuesday she went to a stand alone ER clinic were the diagnosed her with pneumonia and given fluids and a dose of IV antibiotic. She states they sent her home with 3 oral antibiotics. However patient states her symptoms continued to worsen and as such she presented to this facility. CT chest showed bilateral pneumonia. The patient has an extensive pulmonary history, states that her majority of the whole life she has got pneumonia twice a year requiring hospitalization. States that her last hospitalization for pneumonia was approximately 3 years ago. She follows up with a musical engineer in [place]. She currently receives mepolizumab shots. She is also on multiple medications including: Prednisone, albuterol, Singulair, Flonase, Mucinex, and Atrovent. Infectious Disease consulted to monitor patient's antibiotic regimen. Patient currently aerating well on room air. Patient denies nausea/vomiting. Patient reports the diarrhea and pleuritic chest pain worse with coughing. Blood and urine cultures show no growth. Sputum culture strict growing normal respiratory josse. Allergies No Known Allergies Allergy (Unverified 10/17/21 05:02) Home Medications: Acetaminophen [8Hr Arthritis Pain Relief] 2 tab PO BID 10/17/21 Amlodipine [Norvasc*] 5 mg PO DAILY 10/17/21 Ascorbic Acid/Ascorbate Sodium [Vitamin C 500 mg Tablet Chew] 500 mg PO DAILY 10/17/21 Azelastine/Fluticasone [Azelastin-Flutic 137-50Mcg Spr] 2 sprays IN BID 10/17/21 Calcium Carbonate [Calcium] 600 mg PO BEDTIME 10/17/21 Cholecalciferol (Vitamin D3) [Vitamin D3] 1,000 unit PO BEDTIME 10/17/21 Fexofenadine HCl [Nelly Allergy] 180 mg PO DAILY 10/17/21 Fluticasone [Flonase 50MCG Nasal [place]*] 2 spray IN BID 10/17/21 Formoterol Fumarate 20 mcg IH BID 10/17/21 Gabapentin 800 mg PO TID 10/17/21 Glucos Sul 2Kcl/MSM/Chond/C/Mn [Glucosamine Chondroitin Cap] 1 cap PO BID 10/17/21 Guaifenesin [Mucinex] 1,200 mg PO BID 10/17/21 Ipratropium [place] 2 spray IN BID 10/17/21 Losartan Potassium 100 mg PO DAILY 10/17/21 Magnesium Oxide [Magnesium] 250 mg PO BEDTIME 10/17/21 Montelukast [Singulair*] 10 mg PO BEDTIME 10/17/21 Niacinamide 500 mg PO BID 10/17/21 Revefenacin [Yupelri] 1 inh PO DAILY 10/17/21 Zinc 50 mg PO DAILY 10/17/21 levoFLOXacin [Levaquin] 750 mg PO DAILY #7 tab 10/18/21 - Past Medical/Surgical History Diabetic: No -: COPD -: asthma -: Raynaud's -: HTN -: arthritis -: hysterectomy - Social History Alcohol use: No CD- Drugs: No Caffeine use: Yes Place of Residence: Home Review of Systems 10-point ROS is otherwise unremarkable Physical Examination Temp Pulse Resp BP Pulse Ox 97.5 F 100 H 20 123/61 96 10/20/21 08:00 10/20/21 08:00 10/20/21 08:00 10/20/21 08:00 10/20/21 08:00 General: Alert, In no apparent distress HEENT: Atraumatic, Normocephalic Neck: Supple Respiratory: Other (Bilateral crackles/rales. Expiratory wheezing) Cardiovascular: Regular rate/rhythm Gastrointestinal: Normal bowel sounds, Soft and benign Musculoskeletal: No clubbing Integumentary: No rashes, No breakdown, No significant lesion, No tenderness/swelling Conclusions/Impression: Antibiotics: Zosyn Start: 10/17 Levaquin Start: 10/17 Assessment/plan Bilateral multifocal pneumonia Recommend continuing with Zosyn monotherapy. Recommend treating for 7-10 days. Also recommend patient follow up outpatient with her musical engineer. Patient has extensive pulmonary history. Recommend patient be tested for alpha 1 antitrypsin deficiency as well as MAC infection and TB. Recommend patient follow up with her musical engineer following discharge. Initial sputum culture showed normal respiratory josse, repeat sputum cultures ordered. Asthma/COPD/bronchiectasis Continue current recommendations and follow with pulm Anemia Continue to monitor H&H Medical management per primary team Plan of care discussed Dr. crow Thank you for consultation
[2021-10-20] MEDS: Levofloxacin 750mg IV 750 MG/150 ML BAG IV SCH (13:19)
[2021-10-20] MEDS: CALCIUM CARBONATE CHEW 500MG TAB PO SCH (20:35)
[2021-10-20] MEDS: VITAMIN D 1000 UNIT TAB PO SCH (20:35)
[2021-10-20] MEDS: MONTELUKAST 10 MG TAB PO SCH (20:36)
[2021-10-21] MEDS: PIPER TAZO 3.375 GM in NA CHLORIDE 0.9% 100 ML IV SCH ×3 (02:24→17:29)
[2021-10-21] MEDS: NA CHLORIDE 0.9% 1,000 ML IV SCH (05:23)
[2021-10-21 05:37] LABS: Absolute Lymphocytes (CBC) 1.7 K/uL (0.7-4.9); Basophils % 0.8 % (0-1.3); Hematocrit 31.5 % (36.0-45.0); Lymphocytes % 16.3 % (15.3-44.8); MPV 6.8 fL (7.6-11.3); RBC Red Blood Cell Count 3.43 M/uL (3.86-4.86)
[2021-10-21 05:50] LABS: ALT/SGPT 32 U/L (12-78); AST/SGOT 12 U/L (15-37); Albumin 2.4 g/dL (3.4-5.0); Alkaline Phosphatase 66 U/L (45-117); BUN Blood Urea Nitrogen 10 mg/dL (7-18); Bicarbonate 28 mmol/L (21-32); Bilirubin Total 0.3 mg/dL (0.2-1.0); Glucose Level 98 mg/dL (74-106); Potassium 3.6 mmol/L (3.5-5.1); Protein, Total 5.9 g/dL (6.4-8.2); Sodium Level 144 mmol/L (136-145)
--- NOTE | 2021-10-21 06:23 | P.PN ---
Date of Service: 10/21/21 Subjective: Patient more comfortably, coughing less. Diarrhea slightly improved. Took 1 dose of Imodium yesterday. Loose stool this morning No nausea/vomiting, no abdominal pain No leukocytosis, remains afebrile ROS: 10 point ROS as noted above, otherwise negative Physical exam GEN: Alert, oriented, NAD HEENT: Normal conjunctiva, sclera anicteric CV: Regular rate and rhythm, no edema Pulm: Nonlabored respirations on room air, mild crackles at left base ABD: Soft, nontender, nondistended Integumentary: No rashes Neuro: Normal speech, normal affect Problem List Community-acquired pneumonia Chronic asthma Bronchiectasis with history of recurrent pneumonias Diarrhea Patient reports history of bronchiectasis and been told by her exterior interior specialist oral antibiotics would not be enough to treat her pneumonia. Procalcitonin was elevated, now improved Sputum & Blood cultures: Normal respiratory josse/ no growth COVID-19 negative. Continue IV antibiotics-Zosyn and Levaquin Chest physiotherapy-Mucinex and incentive spirometer has been helping c diff negative will trial Imodium. Patient states she is reluctant to do multiple doses as this is because constipation the past. start probiotic 10/20 Bronchodilators as needed. Continue steroid. Consulted ID, recommend repeat sputum culture currently pending Dr. Jason ([phone]) was reached by Dr. Menjivar yesterday Recommended IV antibiotics for a few days given her history decrease IV fluids this morning, may be able to dc today if appetite improves and diarrhea slows down Dispo: anticipate dc home tomorrow Time Spent Managing Pts Care (In Minutes): 35
[2021-10-21] MEDS ORDERED: POTASSIUM CL SA 10 MEQ TAB PO ONE ×2 (09:00)
[2021-10-21] MEDS: GLUCOSAMINE CHONDROITIN PO SCH ×2 (09:00→20:26)
[2021-10-21] MEDS: AZELASTINE NAS SCH ×2 (09:00→20:25)
[2021-10-21] MEDS: NIACINAMIDE 500 MG TAB PO SCH ×2 (09:00→20:26)
[2021-10-21] MEDS: FLUTICASONE NAS SCH ×2 (09:00→20:25)
[2021-10-21] MEDS: FORMOTEROL FUM IH SCH ×2 (09:00→20:26)
[2021-10-21] MEDS: GUAIFENESIN 600 MG SA TAB PO SCH ×2 (09:09→20:24)
[2021-10-21] MEDS: ZINC SULFATE 220 MG CAP PO SCH (09:09)
[2021-10-21] MEDS: LOSARTAN POTASSIUM 50 MG TABLET PO SCH (09:09)
[2021-10-21] MEDS: LOPERAMIDE HCL 2 MG CAPSULE PO PRN (09:09)
[2021-10-21] MEDS: ACETAMINOPHEN 500 MG TAB PO PRN ×3 (09:09→20:23)
[2021-10-21] MEDS: LACTOBACILLUS/ACIDOPHILUS TAB PO SCH ×2 (09:09→20:25)
[2021-10-21] MEDS: AMLODIPINE 5 MG TAB PO SCH (09:09)
[2021-10-21] MEDS: FLUTICASONE 50MCG NASAL SPRAY NAS SCH ×2 (09:10→20:25)
[2021-10-21] MEDS: predniSONE 10 MG TAB PO SCH (09:10)
[2021-10-21] MEDS: FEXOFENADINE 180 MG TAB PO SCH (09:10)
[2021-10-21] MEDS: ASCORBIC ACID 500 MG TABLET PO SCH (09:10)
[2021-10-21] MEDS: ENOXAPARIN 40 MG/0.4 ML SQ SCH (09:10)
[2021-10-21] MEDS: GABAPENTIN 400 MG CAP PO SCH ×3 (09:10→20:24)
--- NOTE | 2021-10-21 11:25 | P.PN ---
Subjective Date of Service: 10/21/21 Primary Care Provider: Pankaj Chief Complaint: pneumonia, copd exacerbation Patient seen examined at bedside, clinically improving. WBC within normal range, afebrile and hemodynamically stable. Review of Systems 10-point ROS is otherwise unremarkable Physical Examination - Vital Signs Temperature: 96.6 F Blood Pressure: 125/67 Pulse: 96 Respirations: 18 Pulse Ox (%): 96 - Studies Laboratory Last Values WBC 19.80 K/uL (4.3-10.9) H 10/16/21 22:09 RBC 4.34 M/uL (3.86-4.86) 10/16/21 22:09 Hgb 12.9 g/dL (12.0-15.0) 10/16/21 22:09 Hct 39.8 % (36.0-45.0) 10/16/21 22:09 MCV 91.5 fL (80-100) 10/16/21 22:09 MCH 29.8 pg (27.0-35.0) 10/16/21 22:09 MCHC 32.5 g/dL (32.0-36.0) 10/16/21 22:09 RDW 13.8 % (12.1-15.2) 10/16/21 22:09 Plt Count 242 K/uL (152-406) 10/16/21 22:09 MPV 7.6 fL (7.6-11.3) 10/16/21 22:09 Neutrophils % 89.9 % (41.7-73.7) H 10/16/21 22:09 Lymphocytes % 5.4 % (15.3-44.8) L 10/16/21 22:09 Monocytes % 4.6 % (3.3-12.3) 10/16/21 22:09 Eosinophils % 0.0 % (0-4.4) 10/16/21 22:09 Basophils % 0.1 % (0-1.3) 10/16/21 22:09 Absolute Neutrophils 17.8 K/uL (1.8-8.0) H 10/16/21 22:09 Absolute Lymphocytes 1.1 K/uL (0.7-4.9) 10/16/21 22:09 Absolute Monocytes 0.9 K/uL (0.1-1.3) 10/16/21 22:09 Absolute Eosinophils 0.0 K/uL (0-0.5) 10/16/21 22:09 Absolute Basophils 0.0 K/uL (0-0.5) 10/16/21 22:09 PT 13.2 SECONDS (9.5-12.5) H 10/16/21 22:09 INR 1.15 10/16/21 22:09 APTT 38.4 SECONDS (24.3-36.9) H 10/16/21 22:09 Sodium 141 mmol/L (136-145) 10/16/21 22:09 Potassium 3.8 mmol/L (3.5-5.1) 10/16/21 22:09 Chloride 111 mmol/L (98-107) H 10/16/21 22:09 Carbon Dioxide 21 mmol/L (21-32) 10/16/21 22:09 BUN 33 mg/dL (7-18) H 10/16/21 22:09 Creatinine 0.86 mg/dL (0.55-1.3) 10/16/21 22:09 Estimated GFR 65 mL/min (=/>90) L 10/16/21 22:09 Glucose 130 mg/dL (74-106) H 10/16/21 22:09 Lactic Acid 1.5 mmol/L (0.4-2.0) 10/16/21 22:09 Calcium 9.3 mg/dL (8.5-10.1) 10/16/21 22:09 Total Bilirubin 0.4 mg/dL (0.2-1.0) 10/16/21 22:09 Direct Bilirubin 0.1 mg/dL (0-0.2) 10/16/21 22:09 AST 26 U/L (15-37) 10/16/21 22:09 ALT 37 U/L (12-78) 10/16/21 22:09 Alkaline Phosphatase 101 U/L (45-117) 10/16/21 22:09 Creatine Kinase 148 U/L (26-192) 10/16/21 22:09 CK-MB (CK-2) 1.8 ng/mL (1.0-3.6) 10/16/21 22:09 Rapid Troponin I < 0.02 ng/mL (0.0-0.045) 10/16/21 22:09 Serum Total Protein 8.2 g/dL (6.4-8.2) 10/16/21 22:09 Albumin 3.6 g/dL (3.4-5.0) 10/16/21 22:09 Globulin 4.6 g/dL (2.3-3.5) H 10/16/21 22:09 Albumin/Globulin Ratio 0.8 (1.1-1.8) L 10/16/21 22:09 Amylase 56 U/L (25-115) 10/16/21 22:09 Lipase 223 U/L (73-393) 10/16/21 22:09 Procalcitonin 7.05 ng/mL (<0.050) H 10/16/21 22:09 Urine RBC <5 /HPF (NONE SEEN) 10/16/21 22:23 Urine WBC <5 /HPF (<5) 10/16/21 22:23 Ur Squamous Epith Cells <5 /HPF (NONE SEEN) 10/16/21 22:23 Urine Bacteria 20-50 /HPF (<20) H 10/16/21 22:23 Coarse Granular Casts Few /LPF (NONE SEEN) 10/16/21 22:23 Urine Mucus 1+ /HPF (NONE SEEN) 10/16/21 22:23 Urine Culture Reflexed Not needed 10/16/21 22:23 Microbiology Data (last 24 hrs): 10/16/21 22:23 Clean Catch Urine [place] Count - Final No growth. 10/16/21 22:23 Clean Catch Urine - Final No growth. Assessment And Plan - Plan Physical exam: General: Alert, In no apparent distress HEENT: Atraumatic, Normocephalic Neck: Supple Respiratory: Other (Bilateral crackles/rales. Expiratory wheezing) Cardiovascular: Regular rate/rhythm Gastrointestinal: Normal bowel sounds, Soft and benign Musculoskeletal: No clubbing Integumentary: No rashes, No breakdown, No significant lesion, No tenderness/swelling Conclusions/Impression: Antibiotics: Zosyn Start: 10/17 Assessment/plan Bilateral multifocal pneumonia Recommend continuing with Zosyn monotherapy. Recommend treating for 7-10 days. Also recommend patient follow up outpatient with her java security engineer. Patient has extensive pulmonary history. Recommend patient be tested for alpha 1 antitrypsin deficiency as well as MAC infection and TB. Initial sputum culture showed normal respiratory josse, repeat sputum cultures pending. Can discharge home on oral Augmentin and azithromycin. Asthma/COPD/bronchiectasis Continue current recommendations and follow with pulm Anemia Continue to monitor H&H Medical management per primary team Plan of care discussed Dr. crow Thank you for consultation
[2021-10-21] MEDS: CALCIUM CARBONATE CHEW 500MG TAB PO SCH (20:24)
[2021-10-21] MEDS: VITAMIN D 1000 UNIT TAB PO SCH (20:24)
[2021-10-21] MEDS: MONTELUKAST 10 MG TAB PO SCH (20:25)
[2021-10-22] MEDS: PIPER TAZO 3.375 GM in NA CHLORIDE 0.9% 100 ML IV SCH ×3 (00:45→17:35)
[2021-10-22] MEDS: ACETAMINOPHEN 500 MG TAB PO PRN ×3 (00:45→23:32)
[2021-10-22 04:11] LABS: Hematocrit 31.9 % (36.0-45.0); MPV 6.4 fL (7.6-11.3); RBC Red Blood Cell Count 3.48 M/uL (3.86-4.86)
[2021-10-22 04:21] LABS: Potassium 3.6 mmol/L (3.5-5.1)
[2021-10-22] MEDS ORDERED: POTASSIUM CL SA 10 MEQ TAB PO ONE ×2 (06:00→09:00)
[2021-10-22] MEDS: FEXOFENADINE 180 MG TAB PO SCH (08:58)
[2021-10-22] MEDS: ENOXAPARIN 40 MG/0.4 ML SQ SCH (08:58)
[2021-10-22] MEDS: AMLODIPINE 5 MG TAB PO SCH (08:59)
[2021-10-22] MEDS: GABAPENTIN 400 MG CAP PO SCH ×3 (08:59→23:31)
[2021-10-22] MEDS: LACTOBACILLUS/ACIDOPHILUS TAB PO SCH ×2 (08:59→23:31)
[2021-10-22] MEDS: ZINC SULFATE 220 MG CAP PO SCH (08:59)
[2021-10-22] MEDS: GUAIFENESIN 600 MG SA TAB PO SCH ×2 (08:59→23:32)
[2021-10-22] MEDS: ASCORBIC ACID 500 MG TABLET PO SCH (08:59)
[2021-10-22] MEDS: LOSARTAN POTASSIUM 50 MG TABLET PO SCH (08:59)
[2021-10-22] MEDS: GLUCOSAMINE CHONDROITIN PO SCH ×2 (09:00→21:00)
[2021-10-22] MEDS: FLUTICASONE NAS SCH ×2 (09:00→21:00)
[2021-10-22] MEDS: FLUTICASONE 50MCG NASAL SPRAY NAS SCH ×2 (09:00→23:28)
[2021-10-22] MEDS: NIACINAMIDE 500 MG TAB PO SCH ×2 (09:00→21:00)
[2021-10-22] MEDS: AZELASTINE NAS SCH ×2 (09:00→21:00)
[2021-10-22] MEDS: FORMOTEROL FUM IH SCH ×2 (09:00→21:00)
[2021-10-22] MEDS: predniSONE 10 MG TAB PO SCH (09:03)
[2021-10-22] MEDS: LOPERAMIDE HCL 2 MG CAPSULE PO PRN (09:03)
--- NOTE | 2021-10-22 11:16 | P.PN ---
Subjective Date of Service: 10/22/21 Primary Care Provider: Pankaj Chief Complaint: pneumonia, copd exacerbation Patient seen examined at bedside, slight increase in WBC noted however patient is on steroids. Afebrile, clinical condition improving. Physical Examination - Vital Signs Temperature: 97.9 F Blood Pressure: 119/64 Pulse: 96 Respirations: 16 Pulse Ox (%): 98 - Studies Laboratory Last Values WBC 19.80 K/uL (4.3-10.9) H 10/16/21 22:09 RBC 4.34 M/uL (3.86-4.86) 10/16/21 22:09 Hgb 12.9 g/dL (12.0-15.0) 10/16/21 22:09 Hct 39.8 % (36.0-45.0) 10/16/21 22:09 MCV 91.5 fL (80-100) 10/16/21 22:09 MCH 29.8 pg (27.0-35.0) 10/16/21 22:09 MCHC 32.5 g/dL (32.0-36.0) 10/16/21 22:09 RDW 13.8 % (12.1-15.2) 10/16/21 22:09 Plt Count 242 K/uL (152-406) 10/16/21 22:09 MPV 7.6 fL (7.6-11.3) 10/16/21 22:09 Neutrophils % 89.9 % (41.7-73.7) H 10/16/21 22:09 Lymphocytes % 5.4 % (15.3-44.8) L 10/16/21 22:09 Monocytes % 4.6 % (3.3-12.3) 10/16/21 22:09 Eosinophils % 0.0 % (0-4.4) 10/16/21 22:09 Basophils % 0.1 % (0-1.3) 10/16/21 22:09 Absolute Neutrophils 17.8 K/uL (1.8-8.0) H 10/16/21 22:09 Absolute Lymphocytes 1.1 K/uL (0.7-4.9) 10/16/21 22:09 Absolute Monocytes 0.9 K/uL (0.1-1.3) 10/16/21 22:09 Absolute Eosinophils 0.0 K/uL (0-0.5) 10/16/21 22:09 Absolute Basophils 0.0 K/uL (0-0.5) 10/16/21 22:09 PT 13.2 SECONDS (9.5-12.5) H 10/16/21 22:09 INR 1.15 10/16/21 22:09 APTT 38.4 SECONDS (24.3-36.9) H 10/16/21 22:09 Sodium 141 mmol/L (136-145) 10/16/21 22:09 Potassium 3.8 mmol/L (3.5-5.1) 10/16/21 22:09 Chloride 111 mmol/L (98-107) H 10/16/21 22:09 Carbon Dioxide 21 mmol/L (21-32) 10/16/21 22:09 BUN 33 mg/dL (7-18) H 10/16/21 22:09 Creatinine 0.86 mg/dL (0.55-1.3) 10/16/21 22:09 Estimated GFR 65 mL/min (=/>90) L 10/16/21 22:09 Glucose 130 mg/dL (74-106) H 10/16/21 22:09 Lactic Acid 1.5 mmol/L (0.4-2.0) 10/16/21 22:09 Calcium 9.3 mg/dL (8.5-10.1) 10/16/21 22:09 Total Bilirubin 0.4 mg/dL (0.2-1.0) 10/16/21 22:09 Direct Bilirubin 0.1 mg/dL (0-0.2) 10/16/21 22:09 AST 26 U/L (15-37) 10/16/21 22:09 ALT 37 U/L (12-78) 10/16/21 22:09 Alkaline Phosphatase 101 U/L (45-117) 10/16/21 22:09 Creatine Kinase 148 U/L (26-192) 10/16/21 22:09 CK-MB (CK-2) 1.8 ng/mL (1.0-3.6) 10/16/21 22:09 Rapid Troponin I < 0.02 ng/mL (0.0-0.045) 10/16/21 22:09 Serum Total Protein 8.2 g/dL (6.4-8.2) 10/16/21 22:09 Albumin 3.6 g/dL (3.4-5.0) 10/16/21 22:09 Globulin 4.6 g/dL (2.3-3.5) H 10/16/21 22:09 Albumin/Globulin Ratio 0.8 (1.1-1.8) L 10/16/21 22:09 Amylase 56 U/L (25-115) 10/16/21 22:09 Lipase 223 U/L (73-393) 10/16/21 22:09 Procalcitonin 7.05 ng/mL (<0.050) H 10/16/21 22:09 Urine RBC <5 /HPF (NONE SEEN) 10/16/21 22:23 Urine WBC <5 /HPF (<5) 10/16/21 22:23 Ur Squamous Epith Cells <5 /HPF (NONE SEEN) 10/16/21 22:23 Urine Bacteria 20-50 /HPF (<20) H 10/16/21 22:23 Coarse Granular Casts Few /LPF (NONE SEEN) 10/16/21 22:23 Urine Mucus 1+ /HPF (NONE SEEN) 10/16/21 22:23 Urine Culture Reflexed Not needed 10/16/21 22:23 Microbiology Data (last 24 hrs): 10/16/21 22:09 Blood - Blood Aerobic Blood Culture - Final No growth in 5 days. 10/16/21 22:09 Blood - Blood Anaerobic Blood Culture - Final No growth in 5 days. 10/16/21 22:09 Blood - Blood Aerobic Blood Culture - Final No growth in 5 days. 10/16/21 22:09 Blood - Blood Anaerobic Blood Culture - Final No growth in 5 days. Assessment And Plan - Plan Physical exam: General: Alert, In no apparent distress HEENT: Atraumatic, Normocephalic Neck: Supple Respiratory: Other (Bilateral crackles/rales. Cardiovascular: Regular rate/rhythm Gastrointestinal: Normal bowel sounds, Soft and benign Musculoskeletal: No clubbing Integumentary: No rashes, No breakdown, No significant lesion, No tenderness/swelling Conclusions/Impression: Antibiotics: Zosyn Start: 10/17 Assessment/plan Bilateral multifocal pneumonia Recommend continuing with Zosyn monotherapy. Recommend treating for 7-10 days. Also recommend patient follow up outpatient with her associate dean of students. Patient has extensive pulmonary history. Recommend patient be tested for alpha 1 antitrypsin deficiency as well as MAC infection and TB. Initial sputum culture showed normal respiratory josse, repeat sputum cultures pending. Can discharge home on oral Augmentin and azithromycin. Asthma/COPD/bronchiectasis Continue current recommendations and follow with pulm Anemia Continue to monitor H&H Medical management per primary team Plan of care discussed Dr. crow Thank you for consultation
[2021-10-22 11:33] LABS: Absolute Lymphocytes (CBC) 1.6 K/uL (0.7-4.9); Basophils % 0.6 % (0-1.3); Hematocrit 37.1 % (36.0-45.0); Lymphocytes % 11.2 % (15.3-44.8); MPV 6.6 fL (7.6-11.3); RBC Red Blood Cell Count 4.02 M/uL (3.86-4.86)
[2021-10-22 12:15] LABS: Blood Morphology Comment NOT SEEN (NOT SEEN); Platelet Estimate ADEQ
--- NOTE | 2021-10-22 16:16 | P.PN ---
Date of Service: 10/22/21 Subjective: Continues to improve, no coughing Diarrhea improved, having more formed stool No new complaints, no dysuria ROS: 10 point ROS as noted above, otherwise negative Physical exam GEN: Alert, oriented, NAD HEENT: Normal conjunctiva, sclera anicteric CV: Regular rate and rhythm, no edema Pulm: Nonlabored respirations on room air ABD: Soft, nontender, nondistended Integumentary: No rashes Neuro: Normal speech, normal affect Problem List Community-acquired pneumonia Chronic asthma Bronchiectasis with history of recurrent pneumonias Diarrhea Patient reports history of bronchiectasis and been told by her computerized mill mill recorder oral antibiotics would not be enough to treat her pneumonia. Procalcitonin was elevated, now improved Sputum & Blood cultures: Normal respiratory josse/ no growth COVID-19 negative. Continue IV antibiotics-Zosyn and Levaquin Mucinex and incentive spirometer has been helping c diff negative imodium helping started probiotic 10/20 Bronchodilators as needed. Continue steroid. Consulted ID, recommend repeat sputum culture currently pending Dr. Jason ([phone]) was reached by Dr. Menjivar yesterday Recommended IV antibiotics for a few days given her history dc'd IVF, tolerating diet WBC elevated, suspect secondary to steroids, patient is clinically improving. she is concerned with increase, will repeat tomorrow Dispo: anticipate dc home tomorrow Time Spent Managing Pts Care (In Minutes): 35
[2021-10-22] MEDS: VITAMIN D 1000 UNIT TAB PO SCH (23:30)
[2021-10-22] MEDS: MONTELUKAST 10 MG TAB PO SCH (23:30)
[2021-10-22] MEDS: CALCIUM CARBONATE CHEW 500MG TAB PO SCH (23:30)
[2021-10-23] MEDS: PIPER TAZO 3.375 GM in NA CHLORIDE 0.9% 100 ML IV SCH ×2 (01:55→08:39)
[2021-10-23 06:03] LABS: Absolute Lymphocytes (CBC) 1.7 K/uL (0.7-4.9); Basophils % 0.6 % (0-1.3); Hematocrit 34.8 % (36.0-45.0); Lymphocytes % 15.6 % (15.3-44.8); MPV 6.6 fL (7.6-11.3); RBC Red Blood Cell Count 3.74 M/uL (3.86-4.86)
[2021-10-23 08:26] VITALS: BP 117/56; TEMP 97.2
[2021-10-23] MEDS: predniSONE 10 MG TAB PO SCH (08:32)
[2021-10-23] MEDS: FEXOFENADINE 180 MG TAB PO SCH (08:32)
[2021-10-23] MEDS: ACETAMINOPHEN 500 MG TAB PO PRN (08:32)
[2021-10-23] MEDS: LACTOBACILLUS/ACIDOPHILUS TAB PO SCH (08:34)
[2021-10-23] MEDS: GABAPENTIN 400 MG CAP PO SCH (08:34)
[2021-10-23] MEDS: LOSARTAN POTASSIUM 50 MG TABLET PO SCH (08:35)
[2021-10-23] MEDS: ZINC SULFATE 220 MG CAP PO SCH (08:35)
[2021-10-23] MEDS: ASCORBIC ACID 500 MG TABLET PO SCH (08:35)
[2021-10-23] MEDS: FLUTICASONE 50MCG NASAL SPRAY NAS SCH (08:35)
[2021-10-23] MEDS: GUAIFENESIN 600 MG SA TAB PO SCH (08:35)
[2021-10-23] MEDS: AZELASTINE NAS SCH (08:36)
[2021-10-23] MEDS: FLUTICASONE NAS SCH (08:36)
[2021-10-23] MEDS: GLUCOSAMINE CHONDROITIN PO SCH (08:37)
[2021-10-23] MEDS: ENOXAPARIN 40 MG/0.4 ML SQ SCH (08:37)
[2021-10-23] MEDS: FORMOTEROL FUM IH SCH (08:37)
[2021-10-23] MEDS: NIACINAMIDE 500 MG TAB PO SCH (08:37)
[2021-10-23] MEDS: AMLODIPINE 5 MG TAB PO SCH (08:38)
[2021-10-23 09:04] VITALS: O2SAT 93
--- NOTE | 2021-10-23 16:24 | P.DS ---
Admission Date: 10/17/21 Discharge Date: 10/23/21 Primary Care Provider: Pankaj Disposition: ROUTINE DISCHARGE Discharge Condition: FAIR Reason for Admission: pneumonia, copd exacerbation Consultations: Infectious disease - Dr. Quiroga Pulmonology - Dr. Perdomo Procedures: CTA chest (10/16): FINDINGS: Artifacts: Motion artifact degrades image quality and limits evaluation of segmental and subsegmental vessels particularly at the lung bases. Pulmonary arteries: No pulmonary arterial filling defects. Aorta: Mild atherosclerotic disease. No thoracic aortic aneurysm. Lungs: Biapical and bilateral upper lobe pleural parenchymal scar. 7 mm left upper lobe nodule (series 401 image 46 and series 404 image 37). Patchy groundglass and reticular nodular bilateral lower lobe opacities, left greater than right. Generalized bronchiectasis. Left basilar mucous plugging. Pleural space: Unremarkable. No significant effusion. No pneumothorax. Heart: Small pericardial effusion. No evidence of RV dysfunction. Thyroid: Heterogeneous nodularity of the right lobe of the thyroid. 2 distinct nodules measuring 1.5 cm. Bones/joints: Multilevel spondylosis. No acute fracture. Soft tissues: Unremarkable. Lymph nodes: Unremarkable. No enlarged lymph nodes. IMPRESSION: 1. Motion artifact degrades image quality and limits evaluation of segmental and subsegmental vessels particularly at the lung bases. No pulmonary embolic disease identified. 2. Left greater than right lower lobe infiltrates. Left basilar mucous plugging. 3. Nonspecific 7 mm left upper lobe nodule. Recommend a non-contrast Chest CT at 6-12 months; if patient is high risk for malignancy, consider an additional non-contrast Chest CT at 18-24 months. If patient is low risk for malignancy, non-contrast Chest CT at 18-24 months is optional. Note: This recommendation does not apply to patients younger than 35 years, immunocompromised patients, and patients with cancer. F/u in patients with significant comorbidities as clinically warranted. For lung cancer screening, adhere to Lung-RADS guidelines. Reference: Radiology. 2017 Apr; 284(1):228-243 4. Right thyroid heterogeneous nodularity. Recommend thyroid US. Note: No imaging follow-up is recommended for patients who have limited life expectancy or significant co-morbidities, unless clinically warranted. This recommendation does not apply to patients with symptomatic thyroid disease or increased risk for thyroid cancer. Reference: J Am Iram Radiol 2015 Dec;12(2): 143-50 5. Other findings as above. Problem List Community-acquired pneumonia Chronic asthma Bronchiectasis with history of recurrent pneumonias Diarrhea Brief History of Present Illness: 71 yo F with COPD, asthma, HTN, Raynaud's disease who presents with fever and SOB. Starting on Tuesday, she had a fever to 103.7 and chills. She also reports cough, wheezing, pleuritic pain, anorexia. She has home O2 to use as needed that she has been having to use more often. She also reports less relief of symptoms with her breathing treatments. Yesterday she went to [place] and received PO antibiotics and steroids. She continued to feel worse, so her horse farm manager told her to go to the ED for IV fluids and IV antibiotics. Prior to 2 years ago, she was admitted to the hospital at least twice a year with pneumonia. She has required multiple bronchial washes and intubations in the past. She started the Nucala injections 2 years ago and has not had to be hospitalized since then. WBC 19.8 BUN 33 GFR 65 procalcitonin 7.05. Hospital Course: Patient empirically treated with IV antibioticsZosyn and Levaquin and 10 mg prednisone. She had gradual improvement of her symptoms and resolution of her leukocytosis. During her hospitalization, she continued with her diarrhea. C. difficile was negative, patient had improvement with probiotic and very low/sparingly use of Imodium. ID was consulted recommended discharge home with Augmentin and azithromycin. Patient is to follow-up with her PCP within 1 week Follow-up with her horse farm manager in few weeks Recommended follow-up with GI for an updated colonoscopy, she reported intermittent diarrhea Vital Signs/Physical Exam: Temp Pulse Resp BP Pulse Ox 97.2 F 90 18 117/56 L 97 10/23/21 08:00 10/23/21 08:00 10/23/21 08:00 10/23/21 08:38 10/23/21 08:00 General: Alert, In no apparent distress, Oriented x3 HEENT: Sclerae nonicteric Neck: Supple Respiratory: Clear to auscultation bilaterally, Normal air movement Cardiovascular: No edema, Regular rate/rhythm Gastrointestinal: Soft and benign, Non-distended, No tenderness Musculoskeletal: No tenderness Integumentary: No rashes Neurological: Normal speech, Normal strength at 5/5 x4 extr, Normal affect Laboratory Data at Discharge: WBC 10.80 K/uL (4.3-10.9) D 10/23/21 05:31 Hgb 11.2 g/dL (12.0-15.0) L 10/23/21 05:31 Hct 34.8 % (36.0-45.0) L 10/23/21 05:31 Plt Count 357 K/uL (152-406) 10/23/21 05:31 PT 13.2 SECONDS (9.5-12.5) H 10/16/21 22:09 INR 1.15 10/16/21 22:09 APTT 47.7 SECONDS (24.3-36.9) H 10/20/21 12:18 Sodium 144 mmol/L (136-145) 10/22/21 03:50 Potassium 3.6 mmol/L (3.5-5.1) 10/22/21 03:50 BUN 14 mg/dL (7-18) 10/22/21 03:50 Creatinine 0.69 mg/dL (0.55-1.3) 10/22/21 03:50 Glucose 104 mg/dL (74-106) 10/22/21 03:50 Phosphorus 1.5 mg/dL (2.5-4.9) L 10/18/21 05:47 Magnesium 2.1 mg/dL (1.8-2.4) 10/18/21 05:47 Total Bilirubin 0.3 mg/dL (0.2-1.0) 10/21/21 05:11 AST 12 U/L (15-37) L 10/21/21 05:11 ALT 32 U/L (12-78) 10/21/21 05:11 Alkaline Phosphatase 66 U/L (45-117) 10/21/21 05:11 Triglycerides 133 mg/dL (<150) 10/18/21 05:47 Cholesterol 118 mg/dL (<200) 10/18/21 05:47 HDL Cholesterol 39 mg/dL (40-60) L 10/18/21 05:47 Cholesterol/HDL Ratio 3.03 10/18/21 05:47 Amylase 56 U/L (25-115) 10/16/21 22:09 Lipase 223 U/L (73-393) 10/16/21 22:09 Home Medications: Acetaminophen [8Hr Arthritis Pain Relief] 2 tab PO BID 10/17/21 Amlodipine [Norvasc*] 5 mg PO DAILY 10/17/21 Ascorbic Acid/Ascorbate Sodium [Vitamin C 500 mg Tablet Chew] 500 mg PO DAILY 10/17/21 Azelastine/Fluticasone [Azelastin-Flutic 137-50Mcg Spr] 2 sprays IN BID 10/17/21 Calcium Carbonate [Calcium] 600 mg PO BEDTIME 10/17/21 Cholecalciferol (Vitamin D3) [Vitamin D3] 1,000 unit PO BEDTIME 10/17/21 Fexofenadine HCl [Nelly Allergy] 180 mg PO DAILY 10/17/21 Fluticasone [Flonase 50MCG Nasal [place]*] 2 spray IN BID 10/17/21 Formoterol Fumarate 20 mcg IH BID 10/17/21 Gabapentin 800 mg PO TID 10/17/21 Glucos Sul 2Kcl/MSM/Chond/C/Mn [Glucosamine Chondroitin Cap] 1 cap PO BID 10/17/21 Guaifenesin [Mucinex] 1,200 mg PO BID 10/17/21 Ipratropium [place] 2 spray IN BID 10/17/21 Losartan Potassium 100 mg PO DAILY 10/17/21 Magnesium Oxide [Magnesium] 250 mg PO BEDTIME 10/17/21 Montelukast [Singulair*] 10 mg PO BEDTIME 10/17/21 Niacinamide 500 mg PO BID 10/17/21 Revefenacin [Yupelri] 1 inh PO DAILY 10/17/21 Zinc 50 mg PO DAILY 10/17/21 Acidophilus/Bulgaricus [Lactinex Packet] 1 each PO BID 7 Days #14 gran.pack 10/23/21 Amox/Clavulanate [Augmentin 875-125 Tab] 875 mg PO BID 4 Days #8 tab 10/23/21 Azithromycin 250 mg PO DAILY 4 Days #4 tablet 10/23/21 Loperamide [Imodium*] 2 mg PO Q6H PRN cap 10/23/21 predniSONE [Deltasone*] 10 mg PO DAILY 4 Days #4 tab 10/23/21 New Medications: Amox/Clavulanate [Augmentin 875-125 Tab] 875 mg PO BID 4 Days #8 tab Azithromycin 250 mg PO DAILY 4 Days #4 tablet predniSONE [Deltasone*] 10 mg PO DAILY 4 Days #4 tab Acidophilus/Bulgaricus [Lactinex Packet] 1 each PO BID 7 Days #14 gran.pack Physician Discharge Instructions: You were treated for pneumonia with IV antibiotics. You had improvement of your symptoms and inflammatory markers. You were evaluated by Infectious Disease team as well. You are discharged to continue antibiotics by mouth for 4 more days Your diarrhea improved, you were treated with imodium as needed and started on a probiotic. Recommend continuing with this regimen. Consider following up with a GI doctor in near future given your recurrent /intermittent diarrhea. Dr. Rubin / Dr. Hope Follow up with your PCP within 1 week Follow up with your horse farm manager as scheduled. Diet: AHA Activity: Ad lilibeth Followup: GI Center ([facility]) [Provider Group] (call to schedule an appointment ) Crow Perdomo MD [ACTIVE - CAN ADMIT] - (horse farm manager- follow up per schedule. ) Jesus Lira, DO [Primary Care Provider] - 1-2 Weeks (PCP- call to schedule an appointment ) Time spent managing pt's care (in minutes): 45
== END 2021-10-23 10:28 | disposition home or self-care (01) | DRG 194 ==
LOC: ER 20:32 → ERHOLD 10-17 01:03 → 2ND 10-17 03:58
PROVIDERS: ADMIT Internal Medicine; ATTEND Hospitalist
DX: J18.9 Pneumonia, unspecified organism (principal); J44.0 Chronic obstructive pulmonary disease with (acute) lower respiratory infection; J44.1 Chronic obstructive pulmonary disease with (acute) exacerbation; D64.9 Anemia, unspecified; I10 Essential (primary) hypertension; R19.7 Diarrhea, unspecified; Z90.710 Acquired absence of both cervix and uterus; Z79.899 Other long term (current) drug therapy; Z79.52 Long term (current) use of systemic steroids; Z20.822 Contact with and (suspected) exposure to COVID-19
CPT/HCPCS: 36415; 71045; 71275; 80048; 80053; 80061; 80076; 81003; 81015; 82150; 82550; 82553; 83605; 83690; 83735; 84100; 84132; 84145; 84439; 84443; 84484; 85025; 85027; 85610; 85730; 87040; 87070; 87086; 87088; 87205; 87324; 87449; 93005; 94010; 94760; 96365; 96366; 96375; 99285; J0456; J1650; J2405; J2543; J7030; J7050; J7512; Q9967; U0003

== ENCOUNTER 2022-01-18 07:37 | Day surgery (SDC) | payer OTHER, MEDICARE ==
[2022-01-12 10:41] LABS: Absolute Lymphocytes (CBC) 1.2 K/uL (0.7-4.9); Hematocrit 38.7 % (36.0-45.0); Lymphocytes % 12.8 % (15.3-44.8); MPV 7.3 fL (7.6-11.3); RBC Red Blood Cell Count 4.19 M/uL (3.86-4.86)
--- NOTE | 2022-01-12 11:00 | RAD REPORT ---
EXAM DESCRIPTION: Faustina Smith (2 Views)01/12/2022 10:52 am CLINICAL HISTORY: Preop for colonoscopy. Skin cancer COMPARISON: 2020 FINDINGS: The lungs are hyperaerated. Areas of scarring are present within the upper lobes with volume loss. The lungs appear clear of acute infiltrate. The heart is normal size IMPRESSION: No acute abnormalities displayed
[2022-01-12 11:14] LABS: Potassium 4.1 mmol/L (3.5-5.1)
[2022-01-18] MEDS ORDERED: Ringers Lactate 1,000 ML IV ONE (08:00)
[2022-01-18] MEDS ORDERED: propofoL 200 MG/20 ML VIAL IV ONE (08:12)
[2022-01-18] MEDS ORDERED: LIDOCAINE 1% MPF 30 ML VIAL ONE (08:12)
--- NOTE | 2022-01-18 09:34 | ENDO RPT ---
[address], [address] COLONOSCOPY PROCEDURE REPORT EXAM DATE: 01/18/2022 PATIENT NAME: Chele Galvez MR #: [id number] BIRTHDATE: 1950 ATTENDING: Mariusz Cuenca M.D. STATUS: outpatient ROLLED HAM LACER: Dunia Avina RN INDICATIONS: The patient is a 71 yr old Female here for a colonoscopy due to history of polyps PROCEDURE PERFORMED: Colonoscopy MEDICATIONS: Per Anesthesia. ESTIMATED BLOOD LOSS: None CONSENT: The patient understands the risks and benefits of the procedure and understands that these risks include, but are not limited to: sedation, allergic reaction, infection, perforation and/or bleeding. Alternative means of evaluation and treatment include, among others: physical exam, x-rays, and/or surgical intervention. The patient elects to proceed with this endoscopic procedure. DESCRIPTION OF PROCEDURE: During intra-op preparation period all mechanical medical equipment was checked for proper function. Hand hygiene and appropriate measures for infection prevention was taken. Procedure, possible complications, alternatives including, but not limited to possibility of bleeding, perforation, tear, infection, sepsis, need for surgery, need for blood transfusion, were explained to the patient. After the risks, benefits and alternatives of the procedure were thoroughly explained, Informed consent was verified, confirmed and timeout was successfully executed by the treatment team. The patient was placed in the left lateral position. A digital rectal exam was performed and revealed no abnormalities of the rectum. After appropriate level of anesthesia, the scope was passed. The EC-[id number] ([id number]) endoscope was introduced through the anus and advanced to the cecum, which was identified by the ileocecal valve. The quality of the prep was fair. The instrument was then slowly withdrawn as the colon was fully examined. Scope withdrawal time was 18 minutes. COLON FINDINGS: External hemorrhoids were found. Retroflexed views revealed no abnormalities. The scope was then completely withdrawn from the patient and the procedure terminated. ADVERSE EVENTS: There were no complications. IMPRESSIONS: External hemorrhoids RECOMMENDATIONS: 1. fiber rich diet 2. follow-up: office 1 week(s) 3. Metamucil 4. increase dietary water RECALL: Return in 5 year(s) Mariusz Cuenca M.D. eSigned: Mariusz Cuenca M.D. 01/18/2022 9:34 AM cc: Jesus Lira MD CPT CODES: ICD9 CODES: PATIENT NAME: Chele Galvez MR#: [id number]
[2022-01-18 10:36] VITALS: BP 118/67; O2SAT 100
[2022-01-18 10:39] VITALS: TEMP 97.8
== END 2022-01-18 10:17 | disposition home or self-care (01) ==
LOC: OR 07:37
PROVIDERS: ATTEND Surgery
PROC: 0DJD8ZZ Inspection of Lower Intestinal Tract, Via Natural or Artificial Opening Endoscopic (ICD-10-PCS; principal; 2022-01-18 09:15)
DX: Z86.010 Personal history of colon polyps (principal); R19.7 Diarrhea, unspecified; K59.09 Other constipation; K64.4 Residual hemorrhoidal skin tags
CPT/HCPCS: 85025; 80048; 36415; 71046; 45378; J2704; J7120

== ENCOUNTER → 2022-03-31 | Day surgery (SDC) | payer OTHER, MEDICARE ==
[2022-03-31 08:35] LABS: Thyroid Stimulating Hormone 1.03 uIU/mL (0.360-3.740)
--- NOTE | 2022-03-31 11:10 | RAD REPORT ---
EXAM DESCRIPTION: US - Guided FNA Non Breast - 03/31/2022 9:47 am CLINICAL HISTORY: E04.2 COMPARISON: No comparisons FINDINGS: Preoperative diagnosis: Thyroid goiter. Post operative diagnosis: Same. Conscious Sedation: None Fluoroscopy time: None Contrast used: None Estimated blood loss: Minimal The neck was prepped and draped in the usual sterile fashion. 1% lidocaine was infiltrated into the s ubcutaneous tissues for local anesthesia. Right lower lobe area of nodularity measuring 2-3 cm was sampled with 3 x 25 gauge needles. Right upper lobe area of nodularity measuring 1-2 cm was sampled with 3 x 25 gauge needles. 1.5 cm nodule with microcalcifications was sampled in the left lower lobe with 5 x 25 gauge needles. There were no complications. IMPRESSION: Successful ultrasound-guided FNA procedure x3 nodules as detailed.
--- NOTE | 2022-04-01 10:00 | RAD REPORT ---
EXAM DESCRIPTION: US - FINE NEEDLE ASPIRATION 2ND LES - 03/31/2022 9:47 am CLINICAL HISTORY: E04.2 COMPARISON: No comparisons FINDINGS: Preoperative diagnosis: Thyroid goiter . Post operative diagnosis: Same. Conscious Sedation: None Fluoroscopy time: None Contrast used: None Estimated blood loss: Minimal The neck was prepped and draped in the usual sterile fashion. 1% lidocaine was infiltrated into the s ubcutaneous tissues for local anesthesia. Right lower lobe area of nodularity measuring 2-3 cm was sampled with 3 x 25 gauge needles. Right upper lobe area of nodularity measuring 1-2 cm was sampled with 3 x 25 gauge needles. 1.5 cm nodule with microcalcifications was sampled in the left lower lobe with 5 x 25 gauge needles. There were no complications. IMPRESSION: Successful ultrasound-guided FNA procedure x3 nodules as detailed.
--- NOTE | 2022-04-01 10:45 | RAD REPORT ---
EXAM DESCRIPTION: US - FINE NEEDLE ASPIRATION 2ND LES - 03/31/2022 10:11 am CLINICAL HISTORY: E04.2 COMPARISON: No comparisons FINDINGS: Preoperative diagnosis: Thyroid goiter . Post operative diagnosis: Same. Conscious Sedation: None Fluoroscopy time: None Contrast used: None Estimated blood loss: Minimal The neck was prepped and draped in the usual sterile fashion. 1% lidocaine was infiltrated into the s ubcutaneous tissues for local anesthesia. Right lower lobe area of nodularity measuring 2-3 cm was sampled with 3 x 25 gauge needles. Right upper lobe area of nodularity measuring 1-2 cm was sampled with 3 x 25 gauge needles. 1.5 cm nodule with microcalcifications was sampled in the left lower lobe with 5 x 25 gauge needles. There were no complications. IMPRESSION: Successful ultrasound-guided FNA procedure x3 nodules as detailed.
== END ==
LOC: FNA 09:22
PROVIDERS: ATTEND Otolaryngology Facial Plastic Surgery
PROC: 0GJK3ZZ Inspection of Thyroid Gland, Percutaneous Approach (ICD-10-PCS; principal; 2022-03-31)
DX: E04.2 Nontoxic multinodular goiter (principal)
CPT/HCPCS: 10006; 36415; 84439; 84443; 88161; 88162

== ENCOUNTER 2023-08-26 06:11 | Day surgery (SDC) | payer OTHER, MEDICARE ==
[2023-08-25 15:04] LABS: Absolute Lymphocytes (CBC) 1.8 K/uL (0.7-4.9); Hematocrit 40.8 % (36.0-45.0); Lymphocytes % 16.3 % (15.3-44.8); MCV 91.2 fL (80-100); MPV 7.1 fL (7.6-11.3); Platelets 229 thou/uL (152-406); RBC Red Blood Cell Count 4.47 M/uL (3.86-4.86)
[2023-08-25 15:09] LABS: Protime INR 1.01
--- NOTE | 2023-08-25 15:45 | RAD REPORT ---
EXAM DESCRIPTION: Faustina Saldana And Joyce (2 Views)08/25/2023 3:18 pm CLINICAL HISTORY: Preop for cardiac catheterization COMPARISON: 2021 FINDINGS: Hyperaerated lungs Areas of scarring upper lobes with volume loss The lungs appear clear of acute infiltrate. Heart is normal size IMPRESSION: COPD without visualization of an acute abnormality
[2023-08-26] MEDS ORDERED: NA CHLORIDE 0.9% 500 ML ONE (06:27)
[2023-08-26] MEDS ORDERED: LIDOCAINE 1% 20 ML MDV ONE (07:02)
[2023-08-26] MEDS ORDERED: HEPA 1000U/500MLS 2,000 UNIT/1,000 ML BAG IV ONE (07:02)
[2023-08-26] MEDS ORDERED: FENTANYL CITR 100 MCG/2 ML ONE (07:03)
[2023-08-26] MEDS ORDERED: MIDAZOLAM HCL 2 MG/2 ML INJ ONE (07:03)
[2023-08-26] MEDS ORDERED: HEPARIN 5000 UNIT/ML 1 ML VIAL ONE (07:03)
[2023-08-26] MEDS ORDERED: TICAGRELOR 90 MG TABLET PO ONE (07:04)
[2023-08-26] MEDS ORDERED: ASPIRIN 325 MG TAB ONE (07:04)
[2023-08-26] MEDS ORDERED: VERAPAMIL HCL 10 MG/4 ML VIAL IV ONE (07:04)
[2023-08-26] MEDS ORDERED: HEPARIN 10,000 UNIT/10 ML VIAL IV ONE (07:04)
[2023-08-26] MEDS ORDERED: CLOPIDOGREL 75 MG TABLET ONE (07:04)
[2023-08-26] MEDS ORDERED: ATROPINE SULF 1 MG/10 ML SYR IV ONE (07:04)
[2023-08-26] MEDS ORDERED: NITROGLYCERIN/D5W 50 MG/250 ML BTL IV ONE (07:05)
[2023-08-26] MEDS ORDERED: NITROGLYCERIN 100 MCG/ML SYR (for cath lab use only) IV ONE (07:05)
[2023-08-26 08:00] VITALS: TEMP 98; O2SAT 98
[2023-08-26 09:26] VITALS: BP 122/68
--- NOTE | 2023-08-26 13:40 | OP ---
Date of Procedure: 08/26/2023 Surgeon: ELIN ZARAGOZA Procedures Performed: 1.Selective coronary angiogram. 2.Left heart catheterization. Indication: Chest pain with abnormal stress test suggestive of unstable angina. Access: Right radial artery 6-Turkmen closed with TR band. Complications: None. Bleeding: Less than 20 mL. Anesthesia: Total sedation time was 20 minutes. Description Of Procedure: After risks, benefits, and alternatives were explained, patient agreed to procedure and signed informal consent. Patient was brought into the cardiac catheterization laborato ry, prepped and draped in usual sterile fashion. Then, I accessed right radial artery using HuntForce c micropuncture kit, placed 6-Turkmen Slender sheath and took 6-Turkmen JL3.5 catheter into the aortic root over a J-wire, engaged the left main, took standard views and exchanged for 6-Turkmen JR4 cathete r, engaged the RCA, took standard views and the catheter was pushed over the wire into the LV, measur ed the LVEDP. Pullback did not record any gradient and then removed the catheter and the sheath and placed TR band with good hemostasis. Findings: 1.Left main; large and normal, very short. 2.LAD; large and normal, normal diagonal branches. 3.Left circumflex; moderate size and normal. 4.RCA; large and dominant, proximal 40%. The rest of it is normal. 5.LVEDP borderline at 14 mmHg. Conclusion: Mild nonobstructive coronary artery disease. Recommendation: Medical management. SR/MODL Voice ID: [id number] Report ID: [id number]
--- NOTE | 2023-08-26 15:47 | EKG ---
Test Date: 2023-08-25 Test Time: 14:40:16 Wire Tinner: MICHELL MEASUREMENT RESULTS: Intervals: Rate: 88 ND: 118 QRSD: 74 QT: 350 QTc: 423 [place]: P: 49 ND: 118 QRS: 62 T: 68 INTERPRETIVE STATEMENTS: Normal sinus rhythm Low voltage QRS Borderline ECG Compared to ECG 10/16/2021 22:48:28 Low QRS voltage now present ST (T wave) deviation no longer present Electronically Signed On 08-26-23 15:42:46 CDT by Tylor Nguyen
== END 2023-08-26 09:45 | disposition home or self-care (01) ==
LOC: CCL 06:11
PROVIDERS: ATTEND Internal Medicine
DX: I25.110 Atherosclerotic heart disease of native coronary artery with unstable angina pectoris (principal); I10 Essential (primary) hypertension; Z79.899 Other long term (current) drug therapy; Z88.5 Allergy status to narcotic agent
CPT/HCPCS: 93005; 85025; 80048; 36415; 83721; 85610; 85730; 71046; 93458; 76937; C1893; Q9966; J1644; J2001; J2250; J3010; J7040; J0461

== ENCOUNTER → 2023-09-27 | Day surgery (SDC) | payer OTHER, MEDICARE ==
--- NOTE | 2023-09-27 14:11 | RAD REPORT ---
EXAM DESCRIPTION: US - Guided FNA Non Breast - 09/27/2023 10:43 am CLINICAL HISTORY: E04.2 COMPARISON: Guided FNA Non Breast dated 03/31/2022 FINDINGS: Preoperative diagnosis: Right thyroid lobe. Post operative diagnosis: Same. Conscious Sedation: None Fluoroscopy time: None Contrast used: None Estimated blood loss: Minimal Specimens:As below Informed consent was obtained after risks and benefits were discussed with the patient. Time-out proc edure was performed. The lower neck was prepped and draped in the usual sterile fashion. 1% lidocaine was infiltrated into the subcutaneous tissues for local anesthesia. Real time ultrasound scanning of the right thyroid lobe demonstrated a dominant 2.6 cm solid nodule inferiorly, with other contiguous nodules predominantly with spongiform texture. Under ultrasound guidance, using a variety of long an d short 25 gauge needles, 5 fine needle aspiration biopsy/ cytology passes were obtained of this lesi on and sent to pathology for evaluation. There were no complications. The patient tolerated the proce dure well. She was subsequently discharged from the radiology department. IMPRESSION: Successful ultrasound-guided right thyroid nodule biopsy.
== END ==
LOC: FNA 08:00
PROVIDERS: ATTEND Otolaryngology Facial Plastic Surgery
PROC: 0G9H3ZX Drainage of Right Thyroid Gland Lobe, Percutaneous Approach, Diagnostic (ICD-10-PCS; principal; 2023-09-27)
DX: E04.2 Nontoxic multinodular goiter (principal)
CPT/HCPCS: 88162

== ENCOUNTER 2023-10-05 09:07 | Day surgery (SDC) | payer OTHER, MEDICARE ==
[2023-10-05] MEDS ORDERED: Ringers Lactate 1,000 ML IV ONE ×2 (09:35→13:43)
[2023-10-05 10:21] LABS: Potassium 3.6 mEq/L (3.5-5.1)
[2023-10-05] MEDS ORDERED: BUPIVACAINE 0.25% PF 10 ML VIAL ONE (11:35)
[2023-10-05] MEDS ORDERED: ONDANSETRON 4 MG/2 ML VIAL ONE (11:38)
[2023-10-05] MEDS ORDERED: FENTANYL CITR 100 MCG/2 ML ONE (11:38)
[2023-10-05] MEDS ORDERED: propofoL 200 MG/20 ML VIAL IV ONE (11:38)
[2023-10-05] MEDS ORDERED: LIDOCAINE 2% MPF 5 ML VIAL ONE (11:39)
[2023-10-05] MEDS: LIDOCAINE HCL/EPINEPHRINE 20 ML MDV ONE ×2 (12:30→12:31)
--- NOTE | 2023-10-05 13:19 | P.OP ---
Preoperative diagnosis: Necrotic Scalp Wound / Basal Cell Skin Cancer Postoperative diagnosis: Necrotic Scalp Wound / Basal Cell Skin Cancer Primary procedure: Excision of Necrotic Scalp Tissue to Calvarium Secondary procedure: Drainage of pericranial abscess Anesthesia: GETA + Local Estimated blood loss: <3cc Specimen: New Margins, Jennifer Findings: Necrotic Scalp wound to calvarium, ~ 7cm round Complications: None Transferred to: Recovery Room Condition: Good
[2023-10-05] MEDS: HYDROMORPHONE HCL 1 MG/ML INJ ONE ×4 (13:40→14:11)
[2023-10-05 14:01] VITALS: O2SAT 100
[2023-10-05 15:02] VITALS: TEMP 98
[2023-10-05 15:38] VITALS: BP 135/74
--- NOTE | 2023-10-05 17:11 | OP ---
Date of Procedure: 10/05/2023 Surgeon: Nitin Scott MD, Brief History Of Present Illness: The patient is a 73-year-old female seen to me in clinic yesterday with a history of basal cell carcinoma of the central upper scalp beyond the furrows of her eyebrows . She had a Mohs excision of the basal cell carcinoma at an outside facility and ultimately develope d a postoperative wound which ultimately dehisced and had some necrosis. She states she has had epis odes of bleeding, requiring additional ligation in the ER. She has visited the provider several time s and was due to see the provider this week as well, but opted for a second opinion. She has been kiser ving drainage like abscess material, foul odor, tenderness in the skin area and has been changing the dressings daily. Preoperative Diagnosis: Necrotic scalp wound/basal cell skin cancer. Postoperative Diagnosis: Necrotic scalp wound/basal cell skin cancer. Procedure Performed: Excision of necrotic scalp tissue through the galea to the calvarium. Secondar y procedure was drainage of pericranial abscess which was deep to the galea as well. Anesthesia: General endotracheal plus local with 1% lidocaine with epinephrine. Estimated Blood Loss: Less than 3 cc. Specimen: New peripheral margins were obtained circumferentially around the previous necrotic wound and the chronic galea, in addition. Cultures sent for both aerobic and anaerobic speciation. Findings: Necrotic scalp wound extending through the galea to the calvarium approximately 7 cm round area. Complications: None. Disposition: Patient transferred to recovery room in good condition. Procedure In Detail: After informed consent was obtained, patient was brought to the operating room, prepped and draped in the usual sterile fashion after adequate anesthesia was achieved. I incised p eripherally around the edge of the previous excisional site where necrosis was evident taking a rim o f good viable tissue. Patient's previous pathology had showed margins were still involved as of the last pathology report I had access to. As such, I took a small peripheral rim of tissue, placed orie ntation stitches, short stitch was anterior, long stitch was left lateral and I noted abscess type ma terial emanating from the deep anterior aspect of the galea. There was a small hole in the galea all owing abscess material to come through and there was discoloration and devascularization to the centr al portion of the galea below this large wound. The galea was obviously necrotic and was removed at this point down to good viable tissue which was the cranium/calvarium. Ultimately, all necrotic tiss ue was removed. I opened an additional abscess cavity, which was anterior to the right anterior late ral aspect. This was opened and drained in its entirety. I then irrigated the area copiously until all abscess was gone. Just prior to this, I cultured both aerobic and anaerobic speciation. At this point, the area was cleansed with Vashe cleanser and then irrigated with sterile saline after 30 sec onds of exposure. At this point, I placed an Adaptic, double-layer, packing the undersurface of the skin with the Adaptic to allow for ongoing drainage, a piece of Xeroform petroleum gauze was placed o adams the top and then Vashe damp gauze and dry gauze was placed on top and a sterile dressing was plac ed over top. The patient tolerated the procedure well without evidence of complication and was trans ferred to PACU in good condition. All counts were correct at the end of the case. JACQUIE/JOSEF Voice ID: [id number] Report ID: [id number]
== END 2023-10-05 15:33 | disposition home or self-care (01) ==
LOC: OR 09:07
PROVIDERS: ATTEND Surgery
PROC: 0JB00ZZ Excision of Scalp Subcutaneous Tissue and Fascia, Open Approach (ICD-10-PCS; principal; 2023-10-05 12:00)
DX: T81.31XA Disruption of external operation (surgical) wound, not elsewhere classified, initial encounter (principal); I96 Gangrene, not elsewhere classified; I10 Essential (primary) hypertension; J44.9 Chronic obstructive pulmonary disease, unspecified; K21.9 Gastro-esophageal reflux disease without esophagitis; Z85.828 Personal history of other malignant neoplasm of skin
CPT/HCPCS: 87070; 80048; 36415; 87205; 88305; 87075; 87077; 87186; 11042; J2704; J2001; J3010; J1170 ×2; J2405; J7120 ×2